=== PATIENT | male | born 1975 | race Caucasian/White ===

== ENCOUNTER 2020-01-21 20:23 | Inpatient (IN) | payer OTHER, SELFPAY ==
[2020-01-21] MEDS ORDERED: Morphine 4 MG/ML VIAL ONE (20:30)
[2020-01-21] MEDS ORDERED: Adacel (T-DAP) 0.5 ML SYRINGE ONE (20:33)
[2020-01-21] MEDS ORDERED: Fentanyl 100 MCG/2 ML VIAL ONE ×4 (20:36→23:43)
--- NOTE | 2020-01-21 20:59 | RAD ---
TWO VIEWS LEFT TIBIA/FIBULA: Date: 01-21-2020 Comparison: None History: Fall, trauma, pain. FINDINGS: Markedly comminuted and markedly displaced distal left tibial and fibular fractures are noted. Distal fracture fragments are displaced laterally by at least 1.4 cm. Multiple displaced fracture fragments are noted. Soft tissue irregularity suggests that this is an open fracture. The calcaneus is not wel l assessed secondary to overlying artifact. IMPRESSION: Findings suggesting an open comminuted displaced and angulated fracture of the distal left tibia and fibula. The fracture probably involves the articular surface of the distal left tibia. POS: [facility]
[2020-01-21 21:07] LABS: #Basophils 0.1 thou/uL (0.0-0.2); #Eosinphils 0.3 thou/uL (0.0-0.7); #Lymphocytes 3.6 thou/uL (1.20-3.40); #Neutrophils 8.9 thou/uL (1.40-6.50); %Basophils 0.6 % (0.0-1.0); %Eosinophils 1.9 % (0.0-10.0); %Lymphocytes 25.7 % (21.0-51.0); %Monocytes 7.4 % (0.0-10.0); %Neutrophils 64.4 % (42.0-75.0); Hemoglobin 13.5 g/dL (14.0-18.0); Mean Corpuscular HGB CONC 34.5 g/dL (32.0-36.0); Mean Corpuscular Hemoglobin 30.9 pg (27.0-31.0); Mean Corpuscular Volume 89.5 fL (78.0-98.0); Mean Platelet Volume 8.6 fL (7.4-10.4); Platelet Count 213 thou/uL (130-400); RBC Distribution Width 11.6 % (11.5-14.5); Red Blood Cell (RBC) Count 4.37 mill/uL (4.70-6.10); White Blood Cell (WBC) Count 13.9 thou/uL (4.8-10.8)
[2020-01-21 21:13] LABS: INR-International Normal Ratio 1.1; Prothrombin Time 13.7 sec (12.0-14.7)
[2020-01-21] MEDS ORDERED: Ondansetron PF 4 MG/2 ML Vial IVP PRN (21:20)
[2020-01-21] MEDS ORDERED: hydrALAZINE 20 MG/ML VIAL SLOW IVP PRN (21:20)
[2020-01-21] MEDS ORDERED: Morphine 4 MG/ML VIAL SLOW IVP PRN (21:20)
[2020-01-21] MEDS ORDERED: Dextrose 5% in Water 1,000 ML IV PRN (21:20)
[2020-01-21] MEDS ORDERED: Dextrose 50% Abboject 50 ML SYRINGE SLOW IVP PRN (21:20)
[2020-01-21] MEDS ORDERED: Neomycin-Polymyxin 1 ML AMP ONE (21:22)
[2020-01-21] MEDS ORDERED: traMADol HCl 50 MG TAB PO PRN ×2 (21:24)
[2020-01-21] MEDS ORDERED: Cyclobenzaprine 10 MG TAB PO PRN (21:24)
[2020-01-21 21:26] LABS: ALT (SGPT) 25 U/L (8-55); AST (SGOT) 18 U/L (5-34); Albumin 4.2 g/dL (3.5-5.0); Alkaline Phosphatase 63 U/L (40-110); Anion Gap 15 mmol/L (10-20); BUN (Urea Nitrogen) 24 mg/dL (8.9-20.6); Bilirubin, Total 0.2 mg/dL (0.2-1.2); Calc. Creatinine Clearance 0 mL/min (70-130); Calcium 9.2 mg/dL (7.8-10.44); Carbon Dioxide 22 mmol/L (22-29); Chloride 110 mmol/L (98-107); Estimated GFR-MDRD 76; Globulin 2.8 g/dL (2.4-3.5); Glucose 96 mg/dL (70-105); Magnesium 2.1 mg/dL (1.6-2.6); Phosphorus 2.7 mg/dL (2.3-4.7); Potassium 3.8 mmol/L (3.5-5.1); Sodium 143 mmol/L (136-145)
[2020-01-21] MEDS ORDERED: Acetaminophen 500 MG TAB PO SCH (21:30)
[2020-01-21] MEDS ORDERED: Sodium Chloride 0.9% 1,000 ML IV SCH (21:30)
[2020-01-21 21:49] LABS: Lactic Acid 1.7 mmol/L (0.5-2.2)
[2020-01-21] MEDS ORDERED: Ibuprofen 600 MG TAB PO SCH (22:00)
[2020-01-21] MEDS ORDERED: Succinylcholine Chloride 20 MG/ML 10 ml SYRINGE FS ONE (22:07)
[2020-01-21] MEDS ORDERED: PROPOFOL 200 MG/20 ML VIAL ONE (22:07)
[2020-01-21] MEDS ORDERED: Ondansetron PF 4 MG/2 ML Vial ONE (22:07)
[2020-01-21] MEDS ORDERED: Glycopyrrolate 0.2 MG/ML 5 ML SYRINGE ONE (22:07)
[2020-01-21] MEDS ORDERED: Dexamethasone 20 MG/5 ML VIAL ONE (22:07)
[2020-01-21] MEDS ORDERED: Rocuronium Bromide 10 MG/ML (10ML VIAL) ONE (22:07)
[2020-01-21] MEDS ORDERED: Lidocaine 1% PF 5 ML VIAL ONE (22:07)
[2020-01-21] MEDS ORDERED: Potassium Phosphate 15 MMOL in Sodium Chloride 0.9% 250 ML 250 ML IVPB SCH (22:30)
[2020-01-21] MEDS ORDERED: cefTRIAXone\\ROCEPHIN 1 GM VIAL ONE (22:44)
[2020-01-21] MEDS ORDERED: Ketorolac Tromethamine 30 MG/ML VIAL ONE (23:34)
[2020-01-21] MEDS ORDERED: Ondansetron HCl/PF 4 MG/2 ML Vial IVP PRN (23:38)
[2020-01-21] MEDS ORDERED: HYDROmorphone 2 MG/ML VIAL SLOW IVP PRN (23:38)
[2020-01-21] MEDS ORDERED: Promethazine HCl 25 MG/ML VIAL SLOW IVP PRN (23:38)
[2020-01-21] MEDS ORDERED: Promethazine HCl 25 MG/ML VIAL IM PRN (23:38)
--- NOTE | 2020-01-21 23:44 | HP ---
TRAUMA SURGEON: Riki Christiansen MD CONSULTING PHYSICIAN: Migel Neff MD HISTORY OF PRESENT ILLNESS: The patient is a 44-year-old male presented to the Emergency Department via EMS after a fall from about 6 feet up while he was on a ladder. The patient reported he was cutting branches with 1 of the branches that he was holding onto came loose, subsequently he fell. He states he initially landed on his feet and sat down on his buttocks and then laid down. He denies hitting his head or loss of consciousness. Denies anticoagulation use. Denies numbness and tingling in his bilateral upper and lower extremities. He has been hemodynamically stable and his left lower extremity was splinted by the emergency room physician before my arrival. REVIEW OF SYSTEMS: All additional 10-point review of systems negative except as indicated above. PAST MEDICAL HISTORY: None. PAST SURGICAL HISTORY: He has had an inguinal hernia repair on the right. SOCIAL HISTORY: The patient denies tobacco, drug, and alcohol use. He lives at home with his and has five kids. He works at a restaurant. He is primarily Turkish-speaking, but understands most Nigerien. MEDICATIONS: None. ALLERGIES: NO KNOWN DRUG ALLERGIES. PHYSICAL EXAMINATION: VITAL SIGNS: Temperature 98.5, pulse 82, respirations 16, oxygen saturation 100% on room air, and blood pressure 142/89. PRIMARY SURVEY: Airway intact. Adequate breath sounds bilaterally. 2+ pulses in the bilateral radials, femorals, and DPs. GCS 15. Gross motor and sensation are intact. The patient has an open fracture to his left distal tib-fib that has been splinted and dressed. There is no signs of active bleeding or oozing at this time. SECONDARY SURVEY: HEAD: Normocephalic and atraumatic. No gross palpable skull deformities. EYES: Pupils 3-2; equal, round, and reactive to light bilaterally. ENT: No signs of trauma. C-SPINE: No step-offs, deformities, or tenderness to palpation. C-collar in place. CHEST: Nontender. No crepitus. No abrasions or ecchymosis. Equal chest movement. ABDOMEN: Soft, nontender, and nondistended. PELVIS: Stable to palpation. Nontender. No abrasions or ecchymosis. RECTAL: Deferred. GENITOURINARY: Deferred. EXTREMITIES: The patient has a splint to his left distal tib-fib that is clean, dry, and intact. There appears to be no signs of active bleeding. 2+ pulses in the bilateral radials, femorals, and DPs. BACK/SPINE: No step-offs or deformities to the thoracic or lumbar spine. He does have some tenderness over the mid upper T-spine with no signs of trauma. NEUROLOGIC: 5/5 strength in bilateral sales agent protective service, plantar flexion, and dorsiflexion. Gross normal sensation x4 extremities. LABORATORY FINDINGS: White count 13.9, hemoglobin 13.5, hematocrit 39.2, and platelets 213. INR 1.1. Sodium 143, potassium 3.8, chloride 110, bicarb 22, BUN 24, creatinine 1.06, glucose 96, lactic acid 1.7, magnesium 2.1, and phosphorus 2.7. DIAGNOSTIC FINDINGS: X-ray of the left tib-fib demonstrates findings suggestive of open comminuted displaced and angulated fracture of the distal left tibia and fibula. The fracture probably involves the articular surface of the distal left tibia. Chest x-ray and pelvic x-ray have been completed. Final reads are pending at this time. There does not seem to be anything obvious noted upon my evaluation. ASSESSMENT: 1. Status post mechanical fall from a ladder up, about 6 feet. 2. Left open distal tib-fib fracture. 3. T-spine tenderness. PLAN: The patient will be admitted to the Trauma Service. Dr. Neff is to take the patient to the OR this evening for fixation of the left open distal tib-fib fracture. We will complete CT scans of the T and L-spine as the patient reported spinal tenderness and with the mechanism of him falling and sitting down, we will want to further evaluate the spine. He is to remain in T and L-spine precautions until this is completed. He will receive scheduled and p.r.n. pain medications. We will follow up on reads of the chest x-ray in the pelvis. The patient will likely be able to go home. Pending CT scan results and working with Physical and Occupational Therapy. This patient will be discussed with Dr. Christiansen after this dictation. Job ID: [id number]
[2020-01-22 01:40] VITALS: BMI 25.7
[2020-01-22] MEDS ORDERED: Potassium Phosphate 15 MMOL in Sodium Chloride 0.9% 250 ML 250 ML IVPB SCH (01:45)
--- NOTE | 2020-01-22 01:50 | OP ---
DATE OF PROCEDURE: 01/21/2020 PREOPERATIVE DIAGNOSIS: Grade 3 open left distal tib-fib fracture, intra-articular. POSTOPERATIVE DIAGNOSIS: Grade 3 open left distal tib-fib fracture, intra-articular. PROCEDURES PERFORMED: 1. Application of delta frame external fixator, left ankle. 2. Irrigation and debridement of left ankle. ANESTHESIA: General. SOLAR INSTALLATION CREW SUPERVISOR: None. TOURNIQUET TIME: Zero. ESTIMATED BLOOD LOSS: 100 mL. IMPLANTS: Synthes large external fixator. COMPLICATIONS: None. DRAINS: None. SPECIMEN: None. OUTCOME: Satisfactory. INDICATIONS FOR PROCEDURE: The patient is a 44-year-old gentleman, status post fall from a height of approximately 6 feet, sustaining an open left distal tibia fracture. Prior to surgery, risks and benefits of the proposed procedure were explained to patient. I believe all questions were answered. The patient does have evidence for a grade 3 open left distal tibia fracture with an anteromedial transverse laceration. There was found to be dirt of the overlying skin, but no gross dirt on initial inspection of the open wound. The patient now taken to the operating room. DESCRIPTION OF PROCEDURE: The patient was brought to the operating room and a time-out performed followed by induction of general anesthesia. The patient was positioned supine on the OR table and a sterile prep and drape was performed of this left lower extremity. The traumatic anteromedial wound was then inspected. There was found to be some necrotic skin edge that was sharply debrided with a scalpel and some fascia that did not appear viable. This too was sharply debrided. There was found to be some small bits of bone that were not attached to any soft tissue and these were also debrided from the wound. After the sharp debridement of the skin and subcutaneous tissue, the wound was further inspected. No obvious dirt or foreign material was found within the wound. The wound was then irrigated with 5 L of normal saline. It should be noted that this distal medial tibia was severely comminuted, but all the remaining bony fragments that were encountered still had soft tissue attachment and as such, they were left in place. Following the irrigation of this traumatic wound, a delta frame external fixator was applied. First, a through and through calcaneal pin was placed, followed by two half pins in the proximal tibial diaphysis. The delta frame was then constructed and under C-arm guidance was adjusted to get reasonable alignment. At the completion of this, all the attachments were firmly secured and then the traumatic wound was loosely closed with #2 nylon just to keep some tension on the skin edge so as not to have any exposed bone visible. At the completion of this, a Xeroform gauze and a bulky short-leg splint was applied to the leg. The patient was then transferred to recovery room in stable condition. There were no complications. He tolerated the procedure well. Job ID: [id number]
[2020-01-22] MEDS: Ibuprofen 600 MG TAB PO SCH ×3 (02:11→18:05)
[2020-01-22] MEDS: Acetaminophen 500 MG TAB PO SCH ×4 (02:11→20:05)
[2020-01-22] MEDS ORDERED: Sodium Chloride 0.9% 1,000 ML IV SCH (02:15)
[2020-01-22] MEDS ORDERED: cefTRIAXone\\ROCEPHIN 2 GM in Sodium Chloride 0.9% 100 ML IVPB SCH ×3 (03:00→23:30)
[2020-01-22 05:15] LABS: #Monocytes 0.7 thou/uL (0.11-0.59); #Neutrophils 12.4 thou/uL (1.40-6.50); %Eosinophils 0.1 % (0.0-10.0); %Monocytes 4.6 % (0.0-10.0); %Neutrophils 88.3 % (42.0-75.0); Hemoglobin 11.6 g/dL (14.0-18.0); Mean Corpuscular HGB CONC 34.7 g/dL (32.0-36.0); Mean Corpuscular Volume 89.3 fL (78.0-98.0); Mean Platelet Volume 8.1 fL (7.4-10.4); Platelet Count 195 thou/uL (130-400); RBC Distribution Width 11.6 % (11.5-14.5); Red Blood Cell (RBC) Count 3.74 mill/uL (4.70-6.10); White Blood Cell (WBC) Count 14.1 thou/uL (4.8-10.8)
[2020-01-22 05:52] LABS: Anion Gap 11 mmol/L (10-20); BUN (Urea Nitrogen) 20 mg/dL (8.9-20.6); Calc. Creatinine Clearance 132 mL/min (70-130); Calcium 8.2 mg/dL (7.8-10.44); Carbon Dioxide 23 mmol/L (22-29); Chloride 108 mmol/L (98-107); Estimated GFR-MDRD Greater than 90; Glucose 137 mg/dL (70-105); Phosphorus 3.7 mg/dL (2.3-4.7); Potassium 4.3 mmol/L (3.5-5.1); Sodium 138 mmol/L (136-145)
--- NOTE | 2020-01-22 08:14 | RAD ---
FRONTAL RADIOGRAPH CHEST: DATE: 01/21/2020. COMPARISON: None. HISTORY: Trauma, pain. FINDINGS: Lungs are clear. Heart and mediastinal contours appear grossly unremarkable. IMPRESSION: No acute findings. POS: [facility]
--- NOTE | 2020-01-22 08:14 | RAD ---
FRONTAL RADIOGRAPH PELVIS: DAET: 01/21/2020. COMPARISON: None. HISTORY: Fall. FINDINGS: There is no widening of the pubic symphysis or sacroiliac joints. No displaced fracture is seen. IMPRESSION: No acute findings. POS: [facility]
--- NOTE | 2020-01-22 09:21 | RAD ---
INTRAOPERATIVE IMAGING LEFT TIBIA FIBULA: DATE: 01/21/2020. COMPARISON: None. HISTORY: Trauma, pain. FINDINGS: There is a markedly comminuted distal left tibial and fibular fracture again noted. There is hardwar e overlying the ankle/hindfoot and the tibial shaft proximal to the fracture consistent with an exter nal fixator placement. IMPRESSION: Placement of a left-sided external fixator. POS: [facility]
[2020-01-22] MEDS: Polyethylene Glycol 3350 17 GM Packet PO SCH (09:38)
[2020-01-22] MEDS: Famotidine/PF 20 mg/2ml Vial SLOW IVP SCH ×2 (09:39→20:06)
[2020-01-22] MEDS: Gabapentin 300 MG CAP PO SCH ×3 (09:39→20:06)
[2020-01-22] MEDS: traMADol HCl 50 MG TAB PO SCH ×3 (09:39→22:53)
[2020-01-22] MEDS: Enoxaparin Sodium 40 MG/0.4 ML SYRINGE SC SCH (09:39)
[2020-01-22] MEDS: Senokot S 8.6-50 MG TAB PO SCH ×2 (09:39→20:06)
--- NOTE | 2020-01-22 10:34 | CT ---
PRELIMINARY REPORT/[facility]/EMERGENCY AFTER HOURS PROCEDURE Exam: Unenhanced CT thoracic and lumbar spine. History: Fall from ladder. Comparison: None provided. Findings: There is mild dependent atelectasis. Paraspinous soft tissues are within normal limits. T here is anatomic alignment. Vertebral body heights are preserved. There is no acute osseous abnorma lity. Impression: Negative CT thoracic and lumbar spine. ELECTRONICALLY SIGNED BY: Loida Rain MD Jan 22, 2020 2:52:48 AM CDT FINAL REPORT CT OF THORACIC SPINE PERFORMED WITHOUT CONTRAST ENHANCEMENT: HISTORY: Fell from a ladder with back pain. FINDINGS: The vertebral bodies maintain normal height. Disk spaces are well preserved and facets are all in no rmal alignment. There are no signs of canal or foraminal stenosis. There is no CT evidence for a fr acture. Bibasilar atelectatic lung changes are seen. IMPRESSION: 1. No evidence of acute injury of the thoracic spine. 2. This report is in agreement with the temporary report issued by [facility]. POS: [facility]
--- NOTE | 2020-01-22 10:44 | CT ---
PRELIMINARY REPORT/[facility]/EMERGENCY AFTER HOURS PROCEDURE: Exam: Unenhanced CT thoracic and lumbar spine. History: Fall from ladder. Comparison: None provided. Findings: There is mild dependent atelectasis. Paraspinous soft tissues are within normal limits. T here is anatomic alignment. Vertebral body heights are preserved. There is no acute osseous abnorma lity. Impression: Negative CT thoracic and lumbar spine. ELECTRONICALLY SIGNED BY: Loida Rain MD Jan 22, 2020 2:52:48 AM CDT FINAL REPORT EMERGENT AFTER HOURS CT OF THE LUMBAR SPINE PERFORMED WITHOUT CONTRAST ENHANCEMENT: HISTORY: Fell from a ladder with back pain. FINDINGS: The vertebral bodies maintain normal height and disk spaces are well preserved. The facets are in no rmal alignment. There is no evidence of canal or foraminal stenosis. There is no CT evidence for a fracture. SI joints are symmetric. There is a punctate nonobstructing left renal calculus incidenta lly noted. IMPRESSION: 1. No CT evidence of fracture of the lumbar spine. 2. Punctate nonobstructing left renal calculus. 3. This report is in agreement with the temporary report issued by [facility].
--- NOTE | 2020-01-22 10:54 | CT ---
PRELIMINARY REPORT/[facility]/EMERGENCY AFTER HOURS PROCEDURE Exam: Left tib-fib CT History: POST-OP, FALL FROM LADDER OPEN TIB FIB FX Comparison: None provided. Findings: Images were obtained from level of distal femur distally through to level of calcaneus. Ally ge quality is degraded due to metallic artifact from external fixator at junction of proximal and mid third tibial diaphysis. There is present within soft tissues. There is no focal hematoma. Edema o f soft tissues about ankle is present. There is butterfly fracture fragments. Distal fibula intra-a rticular fracture is present. Comminuted fracture distal tibial diaphysis extending into the articul ar surface is present. Punctate fracture fragments is present along the posterior lateral tibiotalar joint space. Alignment is grossly maintained. Not entirely included on the exam is calcaneal fract ure. Impression: Fracture distal tibia and fibula. No ankle dislocation. Calcaneal fracture. ELECTRONICALLY SIGNED BY: Loida Rain MD Jan 22, 2020 2:49:09 AM CDT FINAL REPORT CT LEFT LOWER EXTREMITY WITHOUT IV CONTRAST: EMERGENCY AFTER HOURS EXAM TIME: 1:38 AM. DATE: 01/22/2020. CT examination of the left tibia and fibula extending from the knee joint down to the ankle joint. C omminuted displaced distal tibial fracture with butterfly-type fragments and up to 1 cm of displaceme nt. Comminuted fracture of the distal fibular diaphysis with some malalignment. Chip-type fracture involving the posterior medial aspect of the distal fibula which extends intraarticularly. Displaced fracture of the lateral calcaneus. No jessie dislocation. This report is in agreement with the preliminary report. POS: [facility]
--- NOTE | 2020-01-22 13:09 | PRG ---
DATE OF SERVICE: 01/22/2020 SUBJECTIVE: This is a 44-year-old gentleman, who fell approximately 6 feet from a ladder causing a left open distal tib-fib fracture. The patient is postop #1 after washout and external fixator device placement. The patient had no overnight events. The patient's pain is moderate at this time. The patient is tolerating a regular diet. The patient has not worked with Physical Therapy yet. OBJECTIVE: VITAL SIGNS: Blood pressure 113/68, temperature 98.3, pulse 80, respirations 14, SpO2 of 98% on room air. GENERAL: Well-appearing, middle-aged male, awake, alert, in no distress. RESPIRATORY: Equal chest rise and fall, bilateral breath sounds clear, no distress. ABDOMEN: Soft, nontender, nondistended. EXTREMITIES: Neurovascularly intact x4. The patient has a bandage that is clean, dry, and intact to his left lower extremity and external fixator device in place. NEUROLOGIC: No focal deficits. LABORATORY DATA: WBC 14.1, RBC 3.71, hemoglobin 11.6, and hematocrit 33.4. Sodium 138, potassium 4.3, chloride 108, BUN 20, creatinine 0.85, estimated GFR greater than 90, glucose 137, calcium 8.2, phosphorus 3.7, and magnesium 2.0. DIAGNOSTIC STUDIES: Official read on thoracic spine CT and lumbar spine CT, no evidence for acute injury of the thoracic spine. No evidence for fracture of the lumbar spine. Punctate nonobstructing left renal calculus. ASSESSMENT: 1. Status post mechanical fall from a ladder approximately 6 feet. 2. Left open distal tib-fib fracture, postop day #1, washout and external fixator device. 3. Acute traumatic pain secondary to above injury. PLAN: Continue supportive care and increased pain regimen. We will schedule the patient tramadol. We will start Lovenox this morning for VTE prophylaxis. PT and OT to evaluate and treat. The patient will be n.p.o. after midnight as Orthopedic Surgery plans to take him back to the OR for final fixation of his injury. The patient was examined by Dr. Paez during morning rounds. Job ID: [id number]
--- NOTE | 2020-01-22 22:50 | PRG ---
DATE OF SERVICE: 01/22/2020 SUBJECTIVE: The patient was seen this evening during rounds. He was sitting up in bed with no signs of acute distress. He reported no acute events. He is planning to go to the OR tomorrow with Dr. Neff again for a washout of his wound. Ex-fix is in place. OBJECTIVE: VITAL SIGNS: Temperature 97.8, pulse 78, respirations 18, oxygen saturation 97% on room air, and blood pressure 117/71. GENERAL: Well-appearing middle-aged male, sitting up in bed with no signs of acute distress. PULMONARY: Equal chest rise and fall. No signs of acute respiratory distress. ASSESSMENT: 1. Status post fall from ladder about 6 feet. 2. Left open distal tib-fib fracture, status post ex-fix. PLAN: Continue current diet and pain regimen. N.p.o. at midnight for OR tomorrow with Dr. Neff for repeat washout of the left lower extremity. At midnight, he will receive normal saline at 100 an hour for a total of 1 L. Job ID: [id number]
[2020-01-23] MEDS ORDERED: Sodium Chloride 0.9% 1,000 ML IV SCH (00:01)
[2020-01-23] MEDS: Ibuprofen 600 MG TAB PO SCH ×3 (02:53→18:31)
[2020-01-23] MEDS: Acetaminophen 500 MG TAB PO SCH ×4 (02:54→20:24)
[2020-01-23] MEDS: traMADol HCl 50 MG TAB PO SCH ×4 (02:54→22:53)
[2020-01-23 06:07] LABS: #Basophils 0.1 thou/uL (0.0-0.2); #Eosinphils 0.2 thou/uL (0.0-0.7); #Lymphocytes 3.7 thou/uL (1.20-3.40); #Monocytes 1.4 thou/uL (0.11-0.59); #Neutrophils 6.5 thou/uL (1.40-6.50); %Basophils 0.6 % (0.0-1.0); %Eosinophils 1.4 % (0.0-10.0); %Lymphocytes 31.3 % (21.0-51.0); %Monocytes 11.7 % (0.0-10.0); %Neutrophils 54.9 % (42.0-75.0); Hemoglobin 10.2 g/dL (14.0-18.0); Mean Corpuscular HGB CONC 31.9 g/dL (32.0-36.0); Mean Corpuscular Hemoglobin 28.8 pg (27.0-31.0); Mean Corpuscular Volume 90.6 fL (78.0-98.0); Mean Platelet Volume 8.4 fL (7.4-10.4); Platelet Count 198 thou/uL (130-400); RBC Distribution Width 11.7 % (11.5-14.5); Red Blood Cell (RBC) Count 3.55 mill/uL (4.70-6.10); White Blood Cell (WBC) Count 11.8 thou/uL (4.8-10.8)
[2020-01-23 06:23] LABS: Anion Gap 10 mmol/L (10-20); BUN (Urea Nitrogen) 16 mg/dL (8.9-20.6); Calc. Creatinine Clearance 127 mL/min (70-130); Calcium 7.9 mg/dL (7.8-10.44); Carbon Dioxide 25 mmol/L (22-29); Chloride 108 mmol/L (98-107); Estimated GFR-MDRD Greater than 90; Glucose 92 mg/dL (70-105); Magnesium 2.5 mg/dL (1.6-2.6); Phosphorus 2.8 mg/dL (2.3-4.7); Potassium 4.1 mmol/L (3.5-5.1); Sodium 139 mmol/L (136-145)
[2020-01-23] MEDS ORDERED: PROPOFOL 200 MG/20 ML VIAL ONE (09:13)
[2020-01-23] MEDS ORDERED: Lidocaine 1% PF 5 ML VIAL ONE (09:13)
[2020-01-23] MEDS: Senokot S 8.6-50 MG TAB PO SCH ×2 (09:17→20:23)
[2020-01-23] MEDS: Polyethylene Glycol 3350 17 GM Packet PO SCH (09:17)
[2020-01-23] MEDS: Gabapentin 300 MG CAP PO SCH ×3 (09:17→20:25)
[2020-01-23] MEDS: Famotidine/PF 20 mg/2ml Vial SLOW IVP SCH (11:34)
[2020-01-23] MEDS ORDERED: Midazolam HCl 2 mg/2 ml Vial ONE (13:23)
[2020-01-23] MEDS ORDERED: Fentanyl 100 MCG/2 ML VIAL ONE ×3 (13:24→15:11)
[2020-01-23] MEDS ORDERED: Promethazine HCl 25 MG/ML VIAL SLOW IVP PRN (14:16)
[2020-01-23] MEDS ORDERED: Promethazine HCl 25 MG/ML VIAL IM PRN (14:16)
[2020-01-23] MEDS ORDERED: Ondansetron HCl/PF 4 MG/2 ML Vial IVP PRN (14:16)
--- NOTE | 2020-01-23 15:45 | OP ---
DATE OF PROCEDURE: 01/23/2020 OPERATION PERFORMED: Irrigation and debridement of left open tibia fracture. PREOPERATIVE DIAGNOSIS: Displaced left open tibia and fibular fracture status post external fixation. POSTOPERATIVE DIAGNOSIS: Displaced left open tibia and fibular fracture status post external fixation. COMPLICATIONS: None. ESTIMATED BLOOD LOSS: Minimal. ANESTHESIA: General. INDICATIONS: Mr. Huynh is a 44-year-old male who has fallen from a ladder and fractured his left tibia. He has sustained an open tibia and fibular fracture. He has been indicated now for irrigation and debridement of the wound to ensure that he has no infection. We are trying to get him ready for open reduction and internal fixation next week. DESCRIPTION OF PROCEDURE: Mr. Huynh was identified in the preoperative holding area. His correct extremity was marked. He was carried to the operating room. He was positioned supine. General anesthesia was induced. A multidisciplinary time-out was performed. The left lower extremity was prepped and draped in a sterile fashion. We began the procedure by opening the patient's traumatic anterior medial wound. We dissected down through the subcutaneous tissues to the bony level. There was some subcutaneous tissue as well as fascia, which appeared to be injured. This was excisionally debrided. There was no gross purulence or gross infection. There was no gross contamination. We debrided the skin edges as well as the underlying tissue sharply with a knife as well as a curette. We then thoroughly irrigated with copious lavage. At this point, after obtaining hemostasis, we closed the wound with a 3- 0 nylon suture in interrupted fashion. A sterile dressing was applied. The patient was taken to the recovery room in good condition without complication. Job ID: [id number]
--- NOTE | 2020-01-23 18:00 | PRG ---
DATE OF SERVICE: 01/23/2020 SUBJECTIVE: The patient remains on the surgical floor, awake, alert, no distress, currently ambulating on crutches with physical therapy. The patient is postop day #2 status post washout and external fixator device placement. The patient's pain has been well controlled and had no overnight events. The patient has been n.p.o. over midnight as he is going back to the OR for a second washout by Dr. Strong. OBJECTIVE: VITAL SIGNS: Temperature 97.6, pulse 65, respirations 16, SpO2 of 97% on room air, blood pressure 113/72. GENERAL: Well-appearing middle-aged male, awake, alert, no distress. RESPIRATORY: Respirations are even and nonlabored. EXTREMITIES: Neurovascularly intact x4, external fixator in place to left lower extremity. NEUROLOGIC: No focal deficits. LABORATORY DATA: WBC 11.8, RBC 3.55, hemoglobin 10.2, hematocrit 32.1, platelets 198. Sodium 139, potassium 4.1, chloride 108, BUN 16, creatinine 0.88, estimated GFR 90, glucose 92, calcium 7.9, phosphorus 2.8, magnesium 2.5. ASSESSMENT: 1. Status post mechanical fall from ladder approximately 6 feet. 2. Left open distal tib-fib fracture, postop day #1 washout and external fixator device. 3. Acute traumatic pain, improving. PLAN: Continue supportive care and pain regimen. Continue physical and occupational therapy. Lovenox for VTE prophylaxis. The patient will be going to the OR for a second washout today. The patient will continue IV antibiotics per Orthopedic Surgery. The patient will most likely be discharged home tomorrow if his pain is controlled. The patient was examined by Dr. Paez during morning rounds. Job ID: [id number]
[2020-01-23] MEDS: CEFAZOLIN 2 GM in Premix Bag 1 BAG IVPB SCH (20:23)
[2020-01-23] MEDS: Famotidine 20 MG TAB PO SCH (20:23)
[2020-01-24] MEDS: Acetaminophen 500 MG TAB PO SCH ×3 (03:26→14:30)
[2020-01-24] MEDS: Ibuprofen 600 MG TAB PO SCH ×2 (03:27→09:59)
[2020-01-24] MEDS: CEFAZOLIN 2 GM in Premix Bag 1 BAG IVPB SCH (03:27)
[2020-01-24] MEDS ORDERED: CEFAZOLIN 2 GM in Premix Bag 1 BAG IVPB SCH (04:00)
[2020-01-24 04:24] VITALS: TEMP 98.7
[2020-01-24] MEDS: traMADol HCl 50 MG TAB PO SCH ×2 (04:25→10:00)
[2020-01-24 05:14] LABS: Band 3 % (5-11); Eosinophils 2 % (0-10); Hemoglobin 10.1 g/dL (14.0-18.0); Lymphocytes 31 % (21-51); MDiff Complete? YES; Mean Corpuscular Hemoglobin 30.6 pg (27.0-31.0); Mean Platelet Volume 8.2 fL (7.4-10.4); Monocytes 14 % (0-10); Neutrophil 50 % (42-75); Platelet Count 172 thou/uL (130-400); RBC Distribution Width 11.5 % (11.5-14.5); Red Blood Cell (RBC) Count 3.29 mill/uL (4.70-6.10); White Blood Cell (WBC) Count 9.9 thou/uL (4.8-10.8)
--- NOTE | 2020-01-24 06:30 | PDOC.BPN ---
- Brief Progress Note Date of Service: 01/24/2020 SUBJECTIVE: Patient remain in surgical floor. Patient was seen on round last evening Patient report pain is control. He tolerate with his diet. Denied nausea or vomiting Patient worked with PT/OT PHYSICAL EXAMINATION: GENERAL: Currently, the patient is lying down in bed comfortable with no acute respiratory distress, generalized. The patient is alert and awake. GCS 15. VITAL sign stable CHEST: Atraumatic. No tender to palpation. No crepitus. LUNGS: Clear bilaterally. HEART: Regular rate and rhythm. ABDOMEN: Atraumatic. No bruising. No tender to palpation. Nondistended. Bowel sounds active. PELVIS: Stable. EXTREMITIES: Neurovascularly intact x4. Edema of LLE NEUROLOGIC: No focal neurology deficits. ASSESSMENT: 1. Status post fall from the ladder 2. Open L tib/fib fracture- status post ex fixed PLAN: continue pain control. Continue PT/ OT . Elevate LLE . Anticipate discharge home today. Will be readmitted next week for final repaired per Orthopaedic P
[2020-01-24 08:16] VITALS: BP 121/76
[2020-01-24] MEDS: Famotidine 20 MG TAB PO SCH (08:49)
[2020-01-24] MEDS: Enoxaparin Sodium 40 MG/0.4 ML SYRINGE SC SCH (08:49)
[2020-01-24] MEDS: Gabapentin 300 MG CAP PO SCH (08:50)
[2020-01-24] MEDS: Senokot S 8.6-50 MG TAB PO SCH (09:58)
[2020-01-24] MEDS: Polyethylene Glycol 3350 17 GM Packet PO SCH (09:58)
--- NOTE | 2020-01-24 17:03 | DIS ---
DATE OF ADMISSION: 01/22/2020 DATE OF DISCHARGE: 01/24/2020 This is Judith Linton NP dictating a report for Sandro Paez DO. DISCHARGE ATTENDING: Dr. Paez. CONSULTS: Orthopedic Surgery, Dr. Neff. PROCEDURES: 1. On 01/21/2020, Dr. Neff did an irrigation and debridement of his left grade 3 open distal tib-fib fracture. Application of a Delta frame external fixator was placed. 2. On 01/23/2020, Dr. Strong did an irrigation and debridement of his left open tibia-fibula fracture. PRIMARY DIAGNOSES: 1. Status post mechanical fall from ladder approximately 6 feet. 2. Left grade 3 distal tibia-fibula fracture, T-spine tenderness, no fractures. DISCHARGE MEDICATIONS: 1. Lovenox 40 mg subcu q.a.m. for 14 days. 2. Gabapentin 300 mg p.o. 3 times a day, #60, no refills. 3. Tramadol 50 mg p.o. 1 to 2 tabs q.6 hours p.r.n. pain, #60, no refills. 4. Tylenol 1 g p.o. q.6 hours. 5. Ibuprofen 600 mg p.o. q.8 hours p.r.n. pain. 6. MiraLAX as needed for constipation. No discontinued medications. HISTORY OF PRESENT ILLNESS AND HOSPITAL COURSE: This is a 44-year-old gentleman, who was up in a ladder trimming trees, when one of the branches he was holding on to became loose, causing him to fall. The patient initially landed on his feet and sat down onto his buttocks. He denies hitting his head or losing consciousness. The patient denied being on any anticoagulation use. The patient denied any numbness or tingling. The patient also had some T-spine tenderness, in which his x-rays were normal. The patient was hemodynamically stable in the emergency room and throughout his hospital stay. The patient was splinted in the emergency room and taken to the OR for irrigation and debridement and placement of an external fixator. The patient was on IV antibiotics during his hospital stay. The patient's pain was well controlled during his hospital stay. The patient was able to ambulate using crutches with physical therapy without any difficulties. On the day of discharge, the patient was examined by Dr. Paez. The patient's vital signs were stable and his exam was unremarkable including cardiopulmonary and GI exam. The patient was deemed stable for discharge home with his external fixator device in place. DISPOSITION: Stable. DISCHARGE INSTRUCTIONS: 1. Location: Home. 2. Diet: Regular diet as tolerated. 3. Activity: Nonweightbearing left lower extremity, Lovenox for 2 weeks for VTE prophylaxis. Wound care to the left lower extremity. No followup needed with Trauma Services. The patient is scheduled for next Wednesday, January 30 for final repair of his left lower extremity fracture. A COVID prescreen has been ordered. The patient is to follow up with Orthopedic Services as directed. Dressing changes every 2 days or sooner if soiled. The patient has also been instructed to keep the left leg elevated and float the heel. Job ID: [id number]
[2020-01-24] MEDS ORDERED: cefTRIAXone\\ROCEPHIN 2 GM in Sodium Chloride 0.9% 100 ML IVPB SCH (23:00)
== END 2020-01-24 14:30 | disposition home or self-care (01) | DRG 464 ==
LOC: ERS 20:23 → SDC/OP 22:09 → SURG B 01-22 01:02
PROVIDERS: ADMIT Orthopaedic Surgery; ATTEND Orthopaedic Surgery
PROC: 0QSH05Z Reposition Left Tibia with External Fixation Device, Open Approach (ICD-10-PCS; 2020-01-22)
PROC: 0JBR0ZZ Excision of Left Foot Subcutaneous Tissue and Fascia, Open Approach (ICD-10-PCS; principal; 2020-01-23)
DX: S82.302A Unspecified fracture of lower end of left tibia, initial encounter for closed fracture (principal); T84.127A Displacement of internal fixation device of bone of left lower leg, initial encounter; W11.XXXA Fall on and from ladder, initial encounter; S82.492A Other fracture of shaft of left fibula, initial encounter for closed fracture; Y83.8 Other surgical procedures as the cause of abnormal reaction of the patient, or of later complication, without mention of misadventure at the time of the procedure
CPT/HCPCS: 36415; 71045; 72128; 72131; 72170; 76000; 80048; 80053; 83605; 83735; 84100; 85007; 85025; 85027; 85610; 86850; 86900; 86901; 90715; 93005; C1713; G0390; J0690; J0696; J1100; J1650; J1885; J2001; J2250; J2270; J2405; J2704; J3010; J3490; J7050; S0028

== ENCOUNTER 2020-01-29 06:52 | Outpatient (CLI) | payer OTHER, SELFPAY ==
[2020-01-30 13:11] LABS: SARS-CoV-2 MS2 Positive; SARS-CoV-2 N Gene Negative; SARS-CoV-2 S Gene Negative; SARS-CoV-2 orf1ab Negative
== END 2020-01-29 06:53 | disposition home or self-care (01) ==
LOC: LABBT 06:52
PROVIDERS: ATTEND Orthopaedic Surgery
DX: Z01.812 Encounter for preprocedural laboratory examination (principal); Z11.59 Encounter for screening for other viral diseases; S82.202A Unspecified fracture of shaft of left tibia, initial encounter for closed fracture; S82.402A Unspecified fracture of shaft of left fibula, initial encounter for closed fracture
CPT/HCPCS: 87635; U0003

== ENCOUNTER 2020-01-31 09:55 | Inpatient (IN) | payer SELFPAY ==
[2020-01-26 14:43] VITALS: BMI 25.7
[2020-01-31] MEDS ORDERED: Midazolam HCl 2 mg/2 ml Vial ONE (11:07)
[2020-01-31] MEDS ORDERED: Fentanyl 100 MCG/2 ML VIAL ONE ×2 (11:07→12:05)
[2020-01-31] MEDS ORDERED: Lidocaine 1% (PF) 30 ML VIAL ONE (11:21)
[2020-01-31] MEDS ORDERED: Lidocaine 1% PF 5 ML VIAL ONE (11:45)
[2020-01-31] MEDS ORDERED: PROPOFOL 200 MG/20 ML VIAL ONE (11:45)
[2020-01-31] MEDS ORDERED: Ondansetron PF 4 MG/2 ML Vial ONE (11:45)
[2020-01-31] MEDS ORDERED: Ropivacaine 0.5% HCl/PF (150 MG/30 ML VIAL) ONE (11:45)
[2020-01-31] MEDS ORDERED: Dexamethasone 20 MG/5 ML VIAL ONE (11:45)
[2020-01-31 11:52] LABS: Hemoglobin 11.3 g/dL (14.0-18.0); Mean Corpuscular HGB CONC 32.8 g/dL (32.0-36.0); Mean Corpuscular Hemoglobin 29.3 pg (27.0-31.0); Mean Corpuscular Volume 89.4 fL (78.0-98.0); Mean Platelet Volume 6.7 fL (7.4-10.4); Platelet Count 451 thou/uL (130-400); RBC Distribution Width 11.5 % (11.5-14.5); Red Blood Cell (RBC) Count 3.87 mill/uL (4.70-6.10); White Blood Cell (WBC) Count 13.6 thou/uL (4.8-10.8)
[2020-01-31] MEDS ORDERED: Zolpidem Tartrate 5 MG TAB PO PRN (12:03)
[2020-01-31] MEDS ORDERED: Ondansetron PF 4 MG/2 ML Vial IVP PRN (12:03)
[2020-01-31] MEDS ORDERED: Promethazine HCl 25 MG/ML VIAL IM PRN ×2 (12:03→13:44)
[2020-01-31] MEDS ORDERED: Ropivacaine 0.2% 550 ML 550 ML NERVE BLCK SCH (12:03)
[2020-01-31] MEDS ORDERED: Fentanyl 100 MCG/2 ML VIAL IV PRN (12:03)
[2020-01-31] MEDS ORDERED: HYDROcodone/Acetaminophen 10/325 mg Tablet PO PRN (12:03)
[2020-01-31] MEDS ORDERED: traMADol HCl 50 MG TAB PO PRN (12:03)
[2020-01-31] MEDS ORDERED: Neomycin-Polymyxin 1 ML AMP ONE (12:16)
[2020-01-31] MEDS ORDERED: Tobramycin/Dexamethasone Ophth Oint 3.5 GM TUBE ONE (12:16)
[2020-01-31] MEDS ORDERED: Tobramycin Sulfate 1.2 GM VIAL ONE (12:17)
[2020-01-31] MEDS ORDERED: Communication Order-Pharmacy FS SCH (13:30)
[2020-01-31] MEDS ORDERED: TETANUS AND DIPHTHERIA TOX/PF 0.5 ML DISP.SYRIN IM SCH (13:30)
[2020-01-31] MEDS ORDERED: Promethazine HCl 25 MG/ML VIAL SLOW IVP PRN (13:44)
[2020-01-31] MEDS ORDERED: Ondansetron HCl/PF 4 MG/2 ML Vial IVP PRN (13:44)
[2020-01-31] MEDS ORDERED: Meperidine HCl/PF 25 MG/ML VIAL ONE (13:56)
[2020-01-31] MEDS ORDERED: cefTRIAXone\\ROCEPHIN 2 GM in Sodium Chloride 0.9% 100 ML IVPB SCH (15:00)
[2020-01-31] MEDS: cefTRIAXone\\ROCEPHIN 2 GM in Sodium Chloride 0.9% 100 ML IVPB SCH (18:37)
--- NOTE | 2020-01-31 22:07 | OP ---
DATE OF PROCEDURE: 01/31/2020 PREOPERATIVE DIAGNOSIS: Left intra-articular distal tibia fracture with distal fibula fracture, grade 3 open. POSTOPERATIVE DIAGNOSIS: Left intra-articular distal tibia fracture with distal fibula fracture, grade 3 open. PROCEDURES PERFORMED: 1. Irrigation and debridement of left distal tibia. 2. Placement of antibiotic bead pouch. ANESTHESIA: General. MORTAR MAN: Monster Edwards PA-C TOURNIQUET TIME: Zero. COMPLICATIONS: None. DRAINS: None. SPECIMEN: Swab x2 for Gram stain, culture, and sensitivity. IMPLANTS: Vancomycin and tobramycin, antibiotic beads (total of 10 beads on one suture line). INDICATIONS FOR PROCEDURE: The patient is a 44-year-old gentleman, status post grade 3 open left distal tibia and distal fibular shaft fracture. Initially, this wound was found to have some contamination and as such, irrigation and debridement was performed. The patient was placed in a delta frame external fixator. He did return to the operating room 48 hours later for repeat irrigation, was felt to have a clean wound. Due to the swelling and the acute nature of his traumatic wound, he was discharged to home and then brought back today for anticipated open reduction and internal fixation. Preoperatively, however, his white count was found to be 13.7, and he did have some mild drainage from the traumatic wound and as such, I had concerns regarding proceeding with open reduction and internal fixation in the face of this elevated white count. He is now taken back to the operating room for repeat irrigation and debridement as well as placement of antibiotic beads within the wound. DESCRIPTION OF PROCEDURE: The patient was brought to the operating room, and a time-out was performed followed by induction of general anesthesia. Next, a sterile prep and drape was performed of left lower extremity with the external fixator left in place. Next, the sutures from the traumatic anterior medial wound were removed and the wound explored. He was found to have some bloody fluid in the subcutaneous space as well as in the fracture gaps. We did not encounter anything that looked frankly purulent. Cultures were obtained both from the subcutaneous fluid as well as the intramedullary fluid collection. These were sent for Gram stain, culture, and sensitivity. Next, a total of 5 L normal saline with antibiotic irrigant was irrigated through this wound, including the intramedullary canal. There were found to be no fragments of bone, void of soft tissue attachment and as such, none were debrided. At the completion of the irrigation, antibiotic beads composed of vancomycin, tobramycin, and polymethylmethacrylate had been made on the back table. These were then packed in the intramedullary canal through the fracture site. At the completion of this, the skin was reapproximated with #1 nylon and then a Tegaderm dressing applied over this wound to develop a bead pouch. Next, a bulky gauze, Webril, and a posterior fiberglass splint were applied to the leg, and then the patient was transferred to recovery room in stable condition. There were no complications. He tolerated the procedure well. Job ID: [id number]
[2020-02-01 06:11] LABS: #Eosinphils 0.1 thou/uL (0.0-0.7); #Lymphocytes 2.2 thou/uL (1.20-3.40); #Monocytes 1.2 thou/uL (0.11-0.59); %Basophils 0.3 % (0.0-1.0); %Eosinophils 0.4 % (0.0-10.0); %Monocytes 10.6 % (0.0-10.0); %Neutrophils 69.6 % (42.0-75.0); Hemoglobin 9.6 g/dL (14.0-18.0); Mean Corpuscular HGB CONC 33.1 g/dL (32.0-36.0); Mean Corpuscular Hemoglobin 29.4 pg (27.0-31.0); Mean Corpuscular Volume 88.6 fL (78.0-98.0); Mean Platelet Volume 6.7 fL (7.4-10.4); Platelet Count 441 thou/uL (130-400); RBC Distribution Width 11.7 % (11.5-14.5); Red Blood Cell (RBC) Count 3.26 mill/uL (4.70-6.10); White Blood Cell (WBC) Count 11.4 thou/uL (4.8-10.8)
[2020-02-01 08:24] LABS: Anion Gap 12 mmol/L (10-20); BUN (Urea Nitrogen) 18 mg/dL (8.9-20.6); Calc. Creatinine Clearance 140 mL/min (70-130); Calcium 8.9 mg/dL (7.8-10.44); Carbon Dioxide 25 mmol/L (22-29); Chloride 104 mmol/L (98-107); Estimated GFR-MDRD Greater than 90; Glucose 103 mg/dL (70-105); Lactic Acid 0.7 mmol/L (0.5-2.2); Magnesium 2.4 mg/dL (1.6-2.6); Phosphorus 4.1 mg/dL (2.3-4.7); Potassium 4.1 mmol/L (3.5-5.1); Sodium 137 mmol/L (136-145)
[2020-02-01 08:29] LABS: Hemoglobin 9.8 g/dL (14.0-18.0); Mean Corpuscular HGB CONC 32.8 g/dL (32.0-36.0); Mean Corpuscular Hemoglobin 29.3 pg (27.0-31.0); Mean Corpuscular Volume 89.3 fL (78.0-98.0); Mean Platelet Volume 6.6 fL (7.4-10.4); Platelet Count 417 thou/uL (130-400); RBC Distribution Width 11.7 % (11.5-14.5); Red Blood Cell (RBC) Count 3.33 mill/uL (4.70-6.10); White Blood Cell (WBC) Count 12.9 thou/uL (4.8-10.8)
[2020-02-01 08:56] LABS: Band 3 % (5-11); Lymphocytes 24 % (21-51); MDiff Complete? YES; Monocytes 8 % (0-10); Neutrophil 64 % (42-75); Platelet Morphology Comment Appears Increased; Polychromasia SLIGHT = 2-3 cells (100X) (0-2/hpf)
[2020-02-01] MEDS ORDERED: Fentanyl 100 MCG/2 ML VIAL IV PRN (08:57)
[2020-02-01] MEDS: HYDROcodone/Acetaminophen 10/325 mg Tablet PO PRN ×2 (11:32→17:13)
[2020-02-01] MEDS: cefTRIAXone\\ROCEPHIN 2 GM in Sodium Chloride 0.9% 100 ML IVPB SCH (17:14)
[2020-02-01] MEDS: metroNIDAZOLE 500 MG in Premix Bag 1 BAG IVPB SCH (20:14)
[2020-02-01] MEDS: Gabapentin 300 MG CAP PO SCH (20:14)
--- NOTE | 2020-02-01 21:18 | HP ---
REFERRING PHYSICIAN: Migel Neff MD. TRAUMA SURGEON: Sandro Paez DO CONSULTING PHYSICIAN: Migel Neff MD. HISTORY OF PRESENT ILLNESS: The patient is a 44-year-old male, who is known to the Trauma Service. He came to the hospital yesterday to have his ex-fix removed and internal fixation placed by Dr. Neff. He originally sustained a left open tib-fib fracture on January 20 after he fell off a ladder about 6 feet. At that time, Dr. Neff placed an ex-fix and they were scheduled for January 30 to complete the fixation. However, yesterday when he arrived, there was concern for infection of the ex-fix. Subsequently, Dr. Neff completed the I and D of the left distal tib-fib and placed antibiotic beads. The patient was also placed on Rocephin. Dr. Haddad was consulted this morning. Ortho Surgery asked Trauma if we would like the manage the patient's care as he was previously known to us. At the time of my evaluation, the patient had a nerve block to his left lower extremity. He reported his pain was well controlled. Tolerating a diet. Denied fever or chills. Having bowel movements and voiding without issues. He was not tachycardic or febrile. REVIEW OF SYSTEMS: All additional 10-point review of systems negative, except as indicated above. PAST MEDICAL HISTORY: None. PAST SURGICAL HISTORY: Patient went to the OR on January 21, 2020 and had ex-fix placed in his left open tib-fib fracture. SOCIAL HISTORY: The patient works at a [employer] restaurant and lives with the and family at home. He denies tobacco, drug, or alcohol use. MEDICATIONS: The patient home medications include, 1. Tylenol. 2. Lovenox. 3. Gabapentin. 4. Ibuprofen. 5. MiraLAX. 6. Tramadol. ALLERGIES: NO KNOWN DRUG ALLERGIES. PHYSICAL EXAMINATION: VITAL SIGNS: Temperature 98.2, pulse 90, respirations 18, oxygen saturation 99% on room air, blood pressure 127/77. GENERAL: Well-appearing middle-aged male sitting in bed with no signs of acute distress. PULMONARY: Equal chest rise and fall, clear breath sounds bilaterally. No signs of acute respiratory distress. CARDIAC: Regular rate and rhythm. GASTROINTESTINAL: Abdomen is soft, nontender, nondistended. EXTREMITIES: 2+ pulses in all extremities. Gross motor and sensation intact. The patient has a dressing and an ex-fix to his left lower extremity. There is also a nerve block in place that is working appropriately. NEUROLOGIC: GCS is 15. LABORATORY FINDINGS: White count 12.9, hemoglobin 9.8, hematocrit 29.8, platelets 417. Sodium 137, potassium 4.1, chloride 104, bicarb 25, BUN 18, creatinine 0.8, glucose 103. Lactic acid 0.7, phosphorus 4.1, magnesium 2.4. DIAGNOSTIC FINDINGS: There are no new diagnostic findings to report. ASSESSMENT: Left tibial-fibular postoperative infection with ex-fix in place. PLAN: Continue regular diet. Continue pain regimen with scheduled Tylenol and p.r.n. tramadol. Start bowel regimen. Start Lovenox for DVT prophylaxis. Continue nerve block per anesthesia. Continue antibiotics per the recommendations of Dr. Haddad and Dr. Neff. Repeat blood work in the morning. PT, OT to move the patient around. We will touch base with Ortho Surgery to see when they are planning possibly to take him to the OR for either another washout or for internalization of his ex-fix. This patient was discussed with Dr. Paez before this dictation. Job ID: [id number]
[2020-02-01] MEDS: traMADol HCl 50 MG TAB PO PRN (22:01)
[2020-02-01] MEDS: Senokot S 8.6-50 MG TAB PO SCH (22:02)
--- NOTE | 2020-02-01 22:44 | CON ---
DATE OF CONSULTATION: REASON FOR CONSULTATION: Recommendations for antimicrobial prophylaxis for exposed fracture. HISTORY OF PRESENT ILLNESS: A 44-year-old, who has a history of a fall from a step ladder in his house when he was trying to cut a tree branch. After that, he fell on the ground and sustained a type 3A left intra-articular ankle fracture both tibia and fibula, who was brought by EMS to the hospital and he underwent three procedures thus far on 01/20. He had the application of a delta frame external fixator left ankle and irrigation and debridement, but the wound itself was not grossly contaminated and the surgeon was able to close the wound with soft tissue and the second procedure was two days later on January 22 and it consists of irrigation and debridement. In the first procedure, there was noticeable necrotic tissue, which was debrided, some loose bone that was taken out. Most of the remainder of bone was attached to soft tissue though. The second procedure demonstrated no evidence of gross purulence or contamination and again, the skin edges were debrided again. On January 23, the patient was discharged. He was scheduled for the final repair of his left lower extremity and he was readmitted for that and the operative report from yesterday was reviewed and it consisted of irrigation and debridement of left distal tibia and placement of antibiotic bead pouch. The procedure was reviewed as well. The sutures were removed and the wound explored. There was some bloody fluid in the subcutaneous space and fracture gaps, but no purulence. Cultures were taken and antibiotic irrigant was used. No fragments of bone were noted. Antibiotic beads were placed with vancomycin and tobramycin. The intramedullary canal was packed and the skin was reapproximated. The cultures from the site are still pending, the Gram stain with rare growth at the moment. The first admission when the patient had been managed with the first two procedures, cefazolin was given and then Rocephin. Looks like he was not given any other antimicrobial. At this time, he was given one dose of vancomycin perioperatively. Currently, Mr. Huynh is awake. He is very pleasant. Denies any headaches, visual symptoms, sore throat, odynophagia, or dysphagia. No cough or sputum production. No chest pain. No abdominal pain or diarrhea. No genitourinary symptoms. No other joint symptoms. He has mild pain at the site. There is a nerve block placed on the left low lower extremity. PAST MEDICAL HISTORY: Inguinal hernia repair. No other medical problem before this. SOCIAL HISTORY: Never smoker. . Five children. Works at a restaurant. ALLERGIES: NONE. CURRENT MEDICATIONS: 1. Analgesia. 2. He is on ceftriaxone now. PHYSICAL EXAMINATION: VITAL SIGNS: Temperature normal, blood pressure 120/70, pulse 90, respirations 18, and O2 saturation 99. GENERAL: The patient is awake and alert, in no distress. The left lower extremity fracture site is covered with dressing over the external fixator frame. He has a peripheral IV access and is voiding in the urinal. No lymphadenopathy. HEENT: Ocular movements conjugate. Oral cavity normal. NECK: Supple. LUNGS: Symmetric clear breath sounds. HEART: S1 and S2. Regular rate. No S3 or S4. ABDOMEN: Soft, not distended or tender. No ascites. No bladder distention. EXTREMITIES: Pulses are 1+ in dorsalis pedis on the right side. Cap refill is normal in the left toes that are exposed. NEUROLOGIC: His cognitive function is perfectly fine. Normal speech. LABORATORY DATA: White cell count 13.6 and now 12.9, hemoglobin 9.8, and platelets 451. Chemistry was normal. CRP was 5.84. ASSESSMENT: Otherwise healthy middle-aged male, who sustained an exposed fracture, type 3A left ankle intra-articular, which has been managed with external fixation and repeated courses of irrigation and debridement. The patient had Rocephin and cefazolin prophylaxis perioperatively and he is here for the final intervention with planned fixation of the fracture I believe in the next few days, maybe Wednesday or Wednesday next week. DISCUSSION: The management of exposed fracture depends on the degree of exposure and I think he has a grade 3A exposure and the risk of infection is that is obviously higher in those higher grade fractures and when both local and systemic antibiotics are utilized, it seems that the risk of subsequent infection is reduced significantly anywhere from 20% down to around 6%, but those rates are based on retrospective analysis of cases not on prospective randomized trials. Usually it is not recommended to continue prophylaxis beyond a few days after the intervention. Since he has had numerous interventions, then he probably received antimicrobial therapy for about four or five days from 01/20 through 01/23 and now he is coming back for the definitive procedure and cultures are pending. The addition of metronidazole to cover anaerobic agents would be advisable at this moment, but again after the definitive procedure, antimicrobials would not be continued beyond that phase and still, as a mentioned, there is a risk of around 6% of subsequent development of infection, which would require repeat intervention and then protracted antimicrobial therapy. Most cases will do well with this sort of approach. Job ID: [id number] MTDD
[2020-02-02] MEDS: Acetaminophen 500 MG TAB PO SCH ×4 (00:03→18:24)
--- NOTE | 2020-02-02 00:47 | PRG ---
DATE OF SERVICE: 02/01/2020 SUBJECTIVE: The patient was seen during evening rounds, awake, alert, sitting up in bed. The patient reports some occasional burning like pain to his left lower extremity. Otherwise, voices no complaints or concerns. The patient has an external fixator in place to his left lower extremity. Splint and bandage are clean, dry, and intact. OBJECTIVE: VITAL SIGNS: Stable, afebrile. ASSESSMENT: 1. Left tibial-fibular postop infection with external fixator in place. 2. Postoperative day #1, status post irrigation and debridement of left distal tibia-fibula and placement of antibiotic beads. PLAN: Continue regular diet. Continue pain regimen. VTE prophylaxis with Lovenox. Continue nerve block per Anesthesia. Continue antibiotics per Dr. Haddad and Dr. Neff' recommendations. PT and OT to evaluate and treat. Job ID: [id number]
[2020-02-02] MEDS: metroNIDAZOLE 500 MG in Premix Bag 1 BAG IVPB SCH ×3 (04:30→20:08)
[2020-02-02] MEDS: traMADol HCl 50 MG TAB PO PRN ×3 (04:30→18:25)
[2020-02-02 05:44] LABS: Hemoglobin 9.2 g/dL (14.0-18.0); Mean Corpuscular HGB CONC 33.2 g/dL (32.0-36.0); Mean Corpuscular Hemoglobin 29.6 pg (27.0-31.0); Mean Corpuscular Volume 89.1 fL (78.0-98.0); Mean Platelet Volume 6.5 fL (7.4-10.4); Platelet Count 405 thou/uL (130-400); RBC Distribution Width 11.8 % (11.5-14.5); Red Blood Cell (RBC) Count 3.11 mill/uL (4.70-6.10); White Blood Cell (WBC) Count 10.6 thou/uL (4.8-10.8)
[2020-02-02 05:45] LABS: Band 10 % (5-11); Eosinophils 1 % (0-10); Lymphocytes 31 % (21-51); MDiff Complete? YES; Monocytes 11 % (0-10); Neutrophil 47 % (42-75); Platelet Morphology Comment Appears Increased
[2020-02-02 05:51] LABS: Anion Gap 8 mmol/L (10-20); BUN (Urea Nitrogen) 19 mg/dL (8.9-20.6); Calc. Creatinine Clearance 120 mL/min (70-130); Calcium 8.8 mg/dL (7.8-10.44); Carbon Dioxide 29 mmol/L (22-29); Chloride 103 mmol/L (98-107); Estimated GFR-MDRD 88; Glucose 104 mg/dL (70-105); Magnesium 2.2 mg/dL (1.6-2.6); Phosphorus 4.5 mg/dL (2.3-4.7); Potassium 4.4 mmol/L (3.5-5.1); Sodium 136 mmol/L (136-145)
[2020-02-02] MEDS: Senokot S 8.6-50 MG TAB PO SCH (09:49)
[2020-02-02] MEDS: Enoxaparin Sodium 40 MG/0.4 ML SYRINGE SC SCH (09:49)
[2020-02-02] MEDS: Gabapentin 300 MG CAP PO SCH ×3 (09:49→20:08)
[2020-02-02] MEDS: Polyethylene Glycol 3350 17 GM Packet PO SCH (09:50)
[2020-02-02] MEDS: cefTRIAXone\\ROCEPHIN 2 GM in Sodium Chloride 0.9% 100 ML IVPB SCH (18:24)
--- NOTE | 2020-02-02 18:55 | PRG ---
DATE OF SERVICE: 02/02/2020 SUBJECTIVE: The patient was seen this morning during rounds. He was sitting up in bed with no signs of acute distress. Reported pain is well controlled. Tolerating a diet. OBJECTIVE: VITAL SIGNS: Temperature 97.9, pulse 70, respirations 12, oxygen saturation 97% on room air, blood pressure 120/75. GENERAL: Well-appearing, middle-aged male, sitting up in bed with no signs of acute distress. PULMONARY: Equal chest rise and fall. Clear breath sounds bilaterally. No signs of acute respiratory distress. CARDIAC: Regular rate and rhythm. GI: Abdomen is soft, nontender, nondistended. EXTREMITIES: 2+ pulses in all extremities. Gross motor and sensation are intact. Left lower extremity with dressing that is clean, dry, and intact. Ex-fix is in place. Nerve block is also in place on the left lateral leg. LABORATORY FINDINGS: White count 10.6, hemoglobin 9.2, hematocrit 27.7, platelets 405. Sodium 136, potassium 4.4, chloride 105, bicarb 29, BUN 19, creatinine 0.93, glucose 104, phos 4.5, magnesium 2.2. ASSESSMENT: Status post ex-fix wound infection to the left lower extremity. PLAN: Continue current diet and pain regimen. Continue physical and occupational therapy. Continue Lovenox for DVT prophylaxis. Dr. Haddad has added Flagyl to the patient's regimen. We will continue Rocephin as well. Repeat CBC with diff in the morning. This patient was seen and evaluated by Dr. Paez and myself this morning during rounds. Job ID: [id number]
[2020-02-03] MEDS: Acetaminophen 500 MG TAB PO SCH ×5 (00:40→23:14)
[2020-02-03] MEDS: traMADol HCl 50 MG TAB PO PRN ×4 (00:40→23:15)
[2020-02-03] MEDS: Cyclobenzaprine 10 MG TAB PO PRN (02:44)
[2020-02-03] MEDS: metroNIDAZOLE 500 MG in Premix Bag 1 BAG IVPB SCH ×3 (05:01→19:44)
[2020-02-03] MEDS: Enoxaparin Sodium 40 MG/0.4 ML SYRINGE SC SCH (08:09)
[2020-02-03] MEDS: Senokot S 8.6-50 MG TAB PO SCH ×3 (08:09→23:22)
[2020-02-03] MEDS: Polyethylene Glycol 3350 17 GM Packet PO SCH (08:09)
[2020-02-03] MEDS: Gabapentin 300 MG CAP PO SCH ×3 (08:09→19:44)
[2020-02-03] MEDS ORDERED: HYDROcodone/Acetaminophen 10/325 mg Tablet PO PRN (08:17)
[2020-02-03] MEDS: HYDROcodone/Acetaminophen 10/325 mg Tablet PO PRN ×4 (08:47→21:17)
[2020-02-03 09:16] LABS: Band 6 % (5-11); Eosinophils 4 % (0-10); Hemoglobin 9.5 g/dL (14.0-18.0); Lymphocytes 25 % (21-51); MDiff Complete? YES; Mean Corpuscular Volume 88.2 fL (78.0-98.0); Mean Platelet Volume 6.5 fL (7.4-10.4); Monocytes 8 % (0-10); Neutrophil 57 % (42-75); Platelet Count 433 thou/uL (130-400); Platelet Morphology Comment Appears Increased; RBC Distribution Width 11.7 % (11.5-14.5); Red Blood Cell (RBC) Count 3.16 mill/uL (4.70-6.10); White Blood Cell (WBC) Count 9.5 thou/uL (4.8-10.8)
--- NOTE | 2020-02-03 16:38 | PRG ---
DATE OF SERVICE: 02/03/2020 SUBJECTIVE: The patient was seen this morning during rounds. He was sitting up in bed with no signs of acute distress, who reported his pain is well controlled. His left lower extremity nerve block has been removed. Tolerating a diet. Working with physical exam, ambulating in hallway with PT. OBJECTIVE: VITAL SIGNS: Temperature 98.7, pulse 80, respirations 14, oxygen saturation 96% on room air, blood pressure 113/60. GENERAL: Well-appearing, middle-aged male, sitting up in bed with no signs of acute distress. PULMONARY: Equal chest rise and fall. Clear breath sounds bilaterally. No signs of acute respiratory distress. CARDIAC: Regular rate and rhythm. GI: Abdomen is soft, nontender, nondistended. EXTREMITIES: 2+ pulses in all extremities. Gross motor and sensations intact. No significant swelling noted. Ex fix to left lower extremity is clean, dry, and in place. NEURO: GCS is 15. LABORATORY FINDINGS: White count 9.5, hemoglobin 9.5, hematocrit 27.9, platelets 433. Sodium 136, potassium 4.4, chloride 103, bicarb 29, BUN 9, creatinine 0.93, glucose 104, phosphorus 4.5, magnesium 2.2. DIAGNOSTIC FINDINGS: There are no new diagnostic findings to report. ASSESSMENT: Status post left lower extremity wound, postop wound infection. PLAN: Continue current diet and pain regimen. Continue physical and occupational therapy. Continue antibiotics as previously ordered. The patient is still pending definite fixation likely will be on Wednesday with Dr. Neff. Repeat blood work in the morning. Job ID: [id number]
[2020-02-03] MEDS: cefTRIAXone\\ROCEPHIN 2 GM in Sodium Chloride 0.9% 100 ML IVPB SCH (17:06)
[2020-02-04] MEDS: HYDROcodone/Acetaminophen 10/325 mg Tablet PO PRN ×2 (04:00→14:16)
[2020-02-04] MEDS: metroNIDAZOLE 500 MG in Premix Bag 1 BAG IVPB SCH ×3 (04:00→20:19)
[2020-02-04] MEDS: traMADol HCl 50 MG TAB PO PRN ×2 (05:39→20:24)
[2020-02-04] MEDS: Acetaminophen 500 MG TAB PO SCH ×4 (05:39→23:58)
[2020-02-04 06:32] LABS: Hemoglobin 9.5 g/dL (14.0-18.0); Hypochromia SLIGHT = 6-15 cells (100X) (0-5/hpf); Lymphocytes 34 % (21-51); MDiff Complete? YES; Mean Corpuscular Hemoglobin 28.7 pg (27.0-31.0); Mean Corpuscular Volume 89.6 fL (78.0-98.0); Mean Platelet Volume 6.5 fL (7.4-10.4); Monocytes 3 % (0-10); Neutrophil 63 % (42-75); Platelet Count 464 thou/uL (130-400); Platelet Morphology Comment Appears Adequate; RBC Distribution Width 11.9 % (11.5-14.5); Red Blood Cell (RBC) Count 3.32 mill/uL (4.70-6.10); White Blood Cell (WBC) Count 9.2 thou/uL (4.8-10.8)
[2020-02-04] MEDS: Enoxaparin Sodium 40 MG/0.4 ML SYRINGE SC SCH (08:54)
[2020-02-04] MEDS: Gabapentin 300 MG CAP PO SCH ×3 (08:54→20:20)
[2020-02-04] MEDS: Polyethylene Glycol 3350 17 GM Packet PO SCH (08:54)
[2020-02-04] MEDS: Senokot S 8.6-50 MG TAB PO SCH ×2 (08:54→20:20)
--- NOTE | 2020-02-04 17:08 | PRG ---
DATE OF SERVICE: 02/04/2020 SUBJECTIVE: The patient remains on the surgical floor. He is status post postop wound infection of his left lower extremity. The patient currently is planned for surgery tomorrow, though there was one report that it could be Wednesday. The patient has been afebrile. His pain is controlled. He is tolerating a diet. The patient has also continued to work with Physical Therapy. OBJECTIVE: VITAL SIGNS: Temperature 97.8, heart rate 74, blood pressure 108/66, respirations 12, and oxygen saturation 96% on room air. GENERAL: The patient is resting comfortably in bed. Georgian is his primary language, but he was able to communicate well for my exam. RESPIRATORY: His respirations were nonlabored. His breath sounds were clear bilaterally. HEART: Regular rate and rhythm. ABDOMEN: Soft, flat, and nontender with active bowel sounds. EXTREMITIES: Neurovascularly intact x4. Left lower extremity has external fixator in place with a clean, dry and intact dressing. LABORATORY DATA: White blood cell count 9.2, hemoglobin 9.5, hematocrit 29.8, and platelets 464. RADIOGRAPHIC DATA: There are no radiographic exams. ASSESSMENT: Status post left lower extremity wound, postop infection. PLAN: Plan will be to continue supportive care and IV antibiotics. The patient has been made n.p.o. after midnight for plans to go to the operating room tomorrow, but we will verify that this is the current plan by Orthopedics. Job ID: [id number]
[2020-02-04] MEDS: cefTRIAXone\\ROCEPHIN 2 GM in Sodium Chloride 0.9% 100 ML IVPB SCH (17:29)
[2020-02-05] MEDS: metroNIDAZOLE 500 MG in Premix Bag 1 BAG IVPB SCH ×3 (04:18→20:21)
[2020-02-05] MEDS: Acetaminophen 500 MG TAB PO SCH (05:07)
[2020-02-05 05:16] LABS: Mean Corpuscular HGB CONC 32.9 g/dL (32.0-36.0); Mean Corpuscular Hemoglobin 29.5 pg (27.0-31.0); Mean Corpuscular Volume 89.6 fL (78.0-98.0); Mean Platelet Volume 6.4 fL (7.4-10.4); Platelet Count 483 thou/uL (130-400); White Blood Cell (WBC) Count 8.9 thou/uL (4.8-10.8)
[2020-02-05] MEDS: HYDROcodone/Acetaminophen 10/325 mg Tablet PO PRN ×2 (06:38)
[2020-02-05] MEDS: Polyethylene Glycol 3350 17 GM Packet PO SCH (08:18)
[2020-02-05] MEDS: Senokot S 8.6-50 MG TAB PO SCH ×2 (08:18→20:22)
[2020-02-05] MEDS: Enoxaparin Sodium 40 MG/0.4 ML SYRINGE SC SCH (08:18)
[2020-02-05] MEDS: Gabapentin 300 MG CAP PO SCH ×3 (08:18→20:21)
[2020-02-05] MEDS: Acetaminophen 325 MG TAB PO SCH ×3 (12:49→23:24)
[2020-02-05] MEDS: traMADol HCl 50 MG TAB PO PRN ×2 (15:33→21:34)
--- NOTE | 2020-02-05 17:08 | PRG ---
DATE OF SERVICE: 02/05/2020 SUBJECTIVE: The patient is scheduled for surgical intervention I believe tomorrow. He does not have pain, no shortness of breath, or no diarrhea. OBJECTIVE: VITAL SIGNS: Temperature max 99.6, blood pressure 120/57, pulse 84. HEENT: The patient has normal ocular movements. Oral cavity normal. LUNGS: Symmetric with clear breath sounds. HEART: S1 and S2 without murmurs. ABDOMEN: Soft. Not distended. EXTREMITIES: Left lower extremity with external fixator in place. LABORATORY DATA: Microbiology with bacillus from the tibia from 01/30. ASSESSMENT AND DISCUSSION: Healthy middle-aged male with exposed fracture following fall type 3A left ankle intra-articular, external fixation and repeated course of irrigation and debridement. Rocephin and cefazolin prophylaxis. Here for the final intervention with planned internal fixation of the fracture. The intent is to look after the final procedure to withhold antimicrobial therapy unless the deep cultures yield some positive results. Job ID: [id number]
[2020-02-05] MEDS: cefTRIAXone\\ROCEPHIN 2 GM in Sodium Chloride 0.9% 100 ML IVPB SCH (17:37)
[2020-02-05] MEDS: Cyclobenzaprine 10 MG TAB PO PRN (20:20)
[2020-02-06] MEDS: metroNIDAZOLE 500 MG in Premix Bag 1 BAG IVPB SCH ×3 (04:26→20:26)
[2020-02-06] MEDS: Acetaminophen 325 MG TAB PO SCH ×4 (05:44→23:35)
[2020-02-06] MEDS: traMADol HCl 50 MG TAB PO PRN (05:44)
[2020-02-06] MEDS: Enoxaparin Sodium 40 MG/0.4 ML SYRINGE SC SCH (10:08)
[2020-02-06] MEDS: Gabapentin 300 MG CAP PO SCH ×3 (10:08→20:27)
[2020-02-06] MEDS: Polyethylene Glycol 3350 17 GM Packet PO SCH (10:08)
[2020-02-06] MEDS: Senokot S 8.6-50 MG TAB PO SCH ×2 (10:09→20:27)
[2020-02-06] MEDS ORDERED: Ondansetron PF 4 MG/2 ML Vial ONE ×2 (10:28→15:52)
[2020-02-06] MEDS ORDERED: PROPOFOL 200 MG/20 ML VIAL ONE (10:28)
[2020-02-06] MEDS ORDERED: Ketorolac Tromethamine 30 MG/ML VIAL ONE (10:28)
[2020-02-06] MEDS ORDERED: Bupivacaine HCl 0.5%/Epinephrine 1:200,000/PF 30 ml Vial ONE ×2 (10:28→11:51)
[2020-02-06] MEDS ORDERED: Dexamethasone 20 MG/5 ML VIAL ONE (10:28)
[2020-02-06] MEDS ORDERED: PHENYLEPHRINE-NS 100 MCG/ML 10 ML SYRINGE ONE (10:28)
[2020-02-06] MEDS ORDERED: Bupivacaine PF 0.5% 30 ML VIAL ONE (11:45)
[2020-02-06] MEDS ORDERED: Midazolam HCl 2 mg/2 ml Vial ONE (11:53)
[2020-02-06] MEDS ORDERED: Fentanyl 100 MCG/2 ML VIAL ONE ×3 (11:53→16:18)
[2020-02-06] MEDS ORDERED: Lidocaine 1% (PF) 30 ML VIAL ONE (11:56)
[2020-02-06] MEDS ORDERED: metroNIDAZOLE 500 MG/100 ML BAG ONE (11:57)
[2020-02-06] MEDS ORDERED: CEFAZOLIN 2 GM in Premix Bag 1 BAG IVPB SCH (12:00)
[2020-02-06] MEDS ORDERED: Promethazine HCl 25 MG/ML VIAL IM PRN (15:29)
[2020-02-06] MEDS ORDERED: Ondansetron HCl/PF 4 MG/2 ML Vial IVP PRN (15:29)
[2020-02-06] MEDS ORDERED: Promethazine HCl 25 MG/ML VIAL SLOW IVP PRN (15:29)
--- NOTE | 2020-02-06 15:33 | RAD ---
Exam:Intraoperative fluoroscopy HISTORY: Fracture. ORIF. COMPARISON: 01/22/2020, 01/21/2020 FINDINGS: 4 fluoroscopic views demonstrate placement of internal fixation hardware along the tibia an d fibula. Fracture lucencies are identified. Near anatomic alignment. Exposure: 52.2 seconds. 1.3 mGy. IMPRESSION: Intraoperative fluoroscopy as above.
[2020-02-06] MEDS: CEFAZOLIN 2 GM in Premix Bag 1 BAG IVPB SCH ×2 (16:11→21:52)
--- NOTE | 2020-02-06 16:23 | PRG ---
DATE OF SERVICE: 02/06/2020 SUBJECTIVE: The patient is doing well this morning. I discussed that there are plans for him to go back for surgery today, and the patient is agreeable with plan of care. He has not eaten yet today. He reports that his pain is well controlled at this time. The patient has no complaints. OBJECTIVE: VITAL SIGNS: Temperature 98.1, pulse 85, respiratory rate 16, 99% on room air, blood pressure 120/78. GENERAL: Middle-aged male, lying back in bed, in no acute distress at this time. HEENT: Normocephalic and atraumatic. NECK: Trachea, midline. RESPIRATORY: Equal rise and fall. The patient in no respiratory distress at this time. CARDIAC: Regular rate and rhythm. ABDOMEN: Soft and nontender. Positive bowel sounds. EXTREMITIES: Left lower extremity is neurovascularly intact. There is an external fixator in place that is clean, dry, and intact at this time. LABORATORY DATA: There are no new laboratory data to report. DIAGNOSTIC IMAGING: There is no new diagnostic imaging to report. ASSESSMENT: Status post left lower extremity wound, postoperative infection. PLAN: The patient to go back for surgery again today. We would likely have internal fixation during surgery. Plan is to eventually go home with family support as the patient is uninsured. The patient is having bowel movements and is voiding normally. The patient has not had p.o. this morning as he is n.p.o. before surgery. We will follow up the patient after surgery. The patient was evaluated by and the case was discussed with Dr. Paez during morning rounds and he is agreeable with the plan of care. Job ID: [id number] [facility]
--- NOTE | 2020-02-06 16:34 | PRG ---
DATE OF SERVICE: 02/05/2020 SUBJECTIVE: The patient remains on the surgical floor and was evaluated during the morning rounds today. He was sitting upright in bed, in no acute distress on evaluation. He is postop day 5, status post irrigation and debridement of his left distal tibia and placement of an antibiotic bead pouch. The patient is currently scheduled to have surgery tomorrow. He reports that his pain is well tolerated at this time and he is tolerating somewhat of a diet. He continues to void and stool normally. He also continues to work with Physical Therapy at this time. OBJECTIVE: VITAL SIGNS: Temperature 98.7, pulse 76, respiratory rate 14, 99% on room air, blood pressure 122/79. GENERAL: A middle-age man, sitting upright in bed, in no acute distress at this time. HEENT: Normocephalic, atraumatic. RESPIRATORY: Equal rise and fall, the patient has no respiratory distress. HEART: Regular rate and rhythm. ABDOMEN: Soft, nontender, nondistended, positive bowel sounds. EXTREMITIES: Left lower extremity has external fixator in place which is clean, dry, and intact at this time. He is neurovascularly intact. LABORATORY DATA: White count 8.9, hemoglobin 10.0, hematocrit 30.5, platelets 483. DIAGNOSTIC IMAGING: No new imaging to report. ASSESSMENT: 1. Postoperative day 5, status post irrigation and debridement of left distal tibia and placement of antibiotic bead pouch. 2. External fixator in place. PLAN: We will continue supportive care and IV antibiotics at this time. The patient continuing to have good pain control, tolerating a diet, voiding and stooling normally. Plan for likely surgery tomorrow and we will continue to follow patient before and after surgery at this time The case was discussed with Dr. Paez during morning rounds and he is agreeable with the plan of care. Job ID: [id number] MTDD
[2020-02-06] MEDS: cefTRIAXone\\ROCEPHIN 2 GM in Sodium Chloride 0.9% 100 ML IVPB SCH (17:43)
[2020-02-06] MEDS: Cyclobenzaprine 10 MG TAB PO PRN (20:27)
--- NOTE | 2020-02-06 21:41 | OP ---
DATE OF PROCEDURE: 02/06/2020 PROCEDURES PERFORMED: Open reduction and internal fixation of left distal fibula, and open reduction and internal fixation of left distal tibial plafond fracture, also left ankle external fixator removal. PREOPERATIVE DIAGNOSIS: Comminuted and displaced distal tibia and fibula fracture, status post external fixation. POSTOPERATIVE DIAGNOSIS: Comminuted and displaced distal tibia and fibula fracture, status post external fixation. COMPLICATIONS: None. ESTIMATED BLOOD LOSS: Minimal. RESEARCH PROFESSIONAL: Jolie Childs PA-C IMPLANTS: Synthes 10-hole anterior lateral distal tibial plate as well as a distal fibular 1/3 tubular plate with multiple locking and nonlocking screws. INDICATIONS: Mr. Huynh is a 44-year-old male, who was injured. He had a highly comminuted fracture of the distal tibial plafond and fibula. He has been placed in external fixator. He had an open fracture and has had three irrigation and debridement procedures prior to this surgery. He has had intravenous antibiotics as well. His swelling has diminished and he has been deemed ready for open reduction and internal fixation. Risks have been reviewed in detail. DESCRIPTION OF OPERATION: Mr. Huynh was identified in the preoperative holding area. His correct extremity was marked. He was carried to the operating room. He was positioned supine. General anesthesia was induced. A multidisciplinary time-out was performed. The left lower extremity was prepped and draped in sterile fashion. We began the procedure with removal of the patient's external fixator. The pins were backed out as well as removal of the bars. The external fixator was removed completely. At this point, we made an incision over the lateral ankle extending over the anterior aspect of the foot. We dissected down through the subcutaneous tissues. We identified the superficial peroneal nerve and it was protected. We dissected more deeply down to the fibular level. We exposed the underlying fibula fracture. It was a highly comminuted segmental fracture. There were multiple pieces. We used multiple reduction clamps to hold our fragments back together. We used K-wires as well. We then applied a 12-hole 1/3 tubular plate along the lateral cortex of the fibula. Multiple screws were placed proximally and distally as well as through the interfragmentary pieces. We spanned the entire fracture. We took x-ray images confirming hardware placement. At this point, we dissected more medially toward the tibia. We raised a flap of tissue, which was full-thickness in a subperiosteal fashion. We exposed the highly comminuted distal tibial fracture. At this point, we examined the joint surface itself. There were multiple fragments of cartilage, which were nonviable. These were removed. There were also multiple intra-articular fragments of bone, which were removed. We thoroughly irrigated with lavage of the joint surface. We then pulled traction. We next applied a clamp over our anterior lateral fragment to the posterior malleolar fragment. This restored the congruity of the articular surface. Finally, we placed multiple other clamps and K-wires finishing our reduction. We then placed K-wires and clamps through the medial aspect of the distal tibia. Next, we applied anterolateral plate. Multiple screws were placed proximally and distally holding our reduction. We finished hardware placement through the plate and took x-ray images confirming hardware placement. We then placed two screws from the medial aspect through small poke hole incisions. This allowed secure repair of the medial aspect of the bone. We took final x-ray images in all planes. We thoroughly irrigated again with copious lavage as well as using Betadine lavage. We then closed in layers, protecting the neurovascular structures. We were able to close the skin with nylon suture. A sterile dressing was applied. The patient was taken to the recovery room after a sterile dressing and splint were placed. Job ID: [id number]
[2020-02-07] MEDS: metroNIDAZOLE 500 MG in Premix Bag 1 BAG IVPB SCH ×2 (04:05→12:36)
[2020-02-07] MEDS: traMADol HCl 50 MG TAB PO PRN (04:06)
[2020-02-07] MEDS: Cyclobenzaprine 10 MG TAB PO PRN (04:13)
[2020-02-07] MEDS: Acetaminophen 325 MG TAB PO SCH ×2 (05:32→12:33)
[2020-02-07] MEDS: CEFAZOLIN 2 GM in Premix Bag 1 BAG IVPB SCH (05:33)
[2020-02-07 06:02] LABS: #Eosinphils 0.1 thou/uL (0.0-0.7); #Lymphocytes 2.3 thou/uL (1.20-3.40); #Monocytes 1.3 thou/uL (0.11-0.59); #Neutrophils 9.3 thou/uL (1.40-6.50); %Basophils 0.2 % (0.0-1.0); %Lymphocytes 17.4 % (21.0-51.0); %Monocytes 9.7 % (0.0-10.0); %Neutrophils 71.7 % (42.0-75.0); Hemoglobin 9.2 g/dL (14.0-18.0); Mean Corpuscular Hemoglobin 29.7 pg (27.0-31.0); Mean Corpuscular Volume 89.9 fL (78.0-98.0); Mean Platelet Volume 6.3 fL (7.4-10.4); Platelet Count 445 thou/uL (130-400); RBC Distribution Width 12.1 % (11.5-14.5); Red Blood Cell (RBC) Count 3.08 mill/uL (4.70-6.10)
[2020-02-07] MEDS ORDERED: Ketorolac Tromethamine 30 MG/ML VIAL IVP PRN (06:28)
[2020-02-07] MEDS ORDERED: Morphine 2 MG/ML SYRINGE SLOW IVP PRN (06:29)
[2020-02-07] MEDS ORDERED: HYDROcodone/Acetaminophen 10/325 mg Tablet PO PRN ×2 (06:29)
[2020-02-07] MEDS: Polyethylene Glycol 3350 17 GM Packet PO SCH (09:08)
[2020-02-07] MEDS: Senokot S 8.6-50 MG TAB PO SCH (09:08)
[2020-02-07] MEDS: Enoxaparin Sodium 40 MG/0.4 ML SYRINGE SC SCH (09:08)
[2020-02-07] MEDS: Gabapentin 300 MG CAP PO SCH (09:08)
[2020-02-07 11:50] VITALS: BP 130/73; TEMP 98.4
--- NOTE | 2020-02-07 14:13 | PRG ---
DATE OF SERVICE: 02/07/2020 SUBJECTIVE: The patient continues to do well today. He is postop day 7 from I and D of his distal tibia and postop day 1 status post ORIF of his left distal tibia and fibula. He tolerated the procedure well yesterday, though did have some pain overnight. He continues to tolerate p.o. at this time. He continues to work with Physical and Occupational Therapy. At this time, he continues to remain on Rocephin and metronidazole, and his cefazolin was discontinued. The patient had no concerns or complaints today. OBJECTIVE: VITAL SIGNS: Temperature 97.4 Fahrenheit, pulse 78, respiratory rate 12, O2 saturation 97% on room air, and blood pressure 113/70. HEENT: Normocephalic, atraumatic. Trachea midline. RESPIRATORY: Equal rise and fall, the patient has no respiratory distress. CARDIAC: Regular rate and rhythm. ABDOMEN: Soft, nontender, nondistended. EXTREMITIES: Left lower extremity in brace with Valentino bandaging. Sensation and motor ability intact at this time. NEUROLOGIC: No focal neuro deficits noted. LABORATORY DATA: White count 13.0, hemoglobin 9.2, hematocrit 27.7, and platelets 445. DIAGNOSTIC IMAGING: Tibia-fibula x-ray on 02/06/2020: Placement of internal fixation hardware along the tibia and fibula with near anatomic alignment. ASSESSMENT: 1. Status post left lower extremity wound, postoperative infection. 2. Postoperative day 1 status post open reduction and internal fixation of tibia and fibula. PLAN: The patient continues to do well. We will continue supportive therapy at this time including PT and OT. We will continue normal diet as the patient continues to have bowel movements and is voiding. The patient has had complications of a postoperative infection, and thus we will discuss with Dr. Haddad what medications the patient should be discharged on. According to Orthopedics, the patient could possibly go home today pending recommendations from Dr. Haddad and how the patient does with physical therapy today. The patient is uninsured and will thus have to go home after surgery. We will continue to follow. The patient was evaluated by and the case discussed with Dr. Paez during morning rounds and he is agreeable with the plan of care. Job ID: [id number] MTDD
== END 2020-02-07 15:01 | disposition home or self-care (01) | DRG 492 ==
LOC: SDC 09:55 → SURG B 16:09
PROVIDERS: ADMIT Orthopaedic Surgery; ATTEND Orthopaedic Surgery
PROC: 0Q9H0ZZ Drainage of Left Tibia, Open Approach (ICD-10-PCS; 2020-01-31)
PROC: 0QHH05Z Insertion of External Fixation Device into Left Tibia, Open Approach (ICD-10-PCS; 2020-01-31)
PROC: 3E0V329 Introduction of Other Anti-infective into Bones, Percutaneous Approach (ICD-10-PCS; 2020-01-31)
PROC: 0QSK04Z Reposition Left Fibula with Internal Fixation Device, Open Approach (ICD-10-PCS; principal; 2020-02-06)
PROC: 0QSH04Z Reposition Left Tibia with Internal Fixation Device, Open Approach (ICD-10-PCS; 2020-02-06)
DX: S82.392A Other fracture of lower end of left tibia, initial encounter for closed fracture (principal); S82.832C Other fracture of upper and lower end of left fibula, initial encounter for open fracture type IIIA, IIIB, or IIIC; T81.40XA Infection following a procedure, unspecified, initial encounter; Y83.8 Other surgical procedures as the cause of abnormal reaction of the patient, or of later complication, without mention of misadventure at the time of the procedure
CPT/HCPCS: 36415; 76000; 80048; 83605; 83735; 84100; 85007; 85025; 85027; 85652; 86140; 87070; 87205; A4306; C1713; J0670; J0690; J0696; J1100; J1650; J1885; J2001; J2175; J2250; J2270; J2405; J2704; J2795; J3010; J3260; J3370; J3490; S0020

== ENCOUNTER 2020-09-04 14:00 | Outpatient (CLI) | payer OTHER ==
--- NOTE | 2020-09-04 14:59 | CT ---
CT LOWER EXTREMITY LEFT WITHOUT CONTRAST: DATE: 09/04/2020 2:20 PM. INDICATION: History of left ankle fracture; persistent pain. COMPARISON: Prior CT of the left ankle dated January 22, 2020. FINDING: Since the comparison examination, there has been interval open reduction internal fixation of the com minuted tibial plafond fracture. There is near-anatomic alignment of the bone fragments. There is a residual 6.2 x 7 mm articular surface gap involving the anterior and medial aspect of the tibial plaf ond on image 31 of the coronal series and image 32 of the sagittal series. There is no appreciable healing of the comminuted fracture of the distal tibia. There is some retained suspected cortical bon e in the fracture site of the distal tibial metaphysis, best seen on image 30 of series 6 measuring 1.9 cm and 0.9 cm. There has been interval open reduction internal fixation of the distal fibular sha ft fracture. This is incompletely healed. There is diffuse disuse osteopenia involving the distal tibia. There is incomplete healing of the lateral calcaneal wall fracture. There are external fixator pins at sites in the calcaneus. There is diffuse soft tissue swelling of the lower foreleg and foot. IMPRESSION: 1. Interval open reduction internal fixation of the comminuted tibial plafond fracture without apprec iable interval healing. There is some retained cortical bone within the fracture sites which may reflect necrotic bone fragments. 2. Incompletely healed instrumented fibular shaft fracture. 3. Incompletely healed lateral calcaneal wall fracture. 5. Prominent disuse osteopenia. 6. Prominent subcutaneous edema involving the lower foreleg and ankle. Transcribed Date/Time: 09/04/2020 3:14 PM
== END 2020-09-04 14:01 | disposition home or self-care (01) ==
LOC: BICCT 14:00
PROVIDERS: ATTEND Orthopaedic Surgery
DX: S82.872E Displaced pilon fracture of left tibia, subsequent encounter for open fracture type I or II with routine healing (principal); S82.402P Unspecified fracture of shaft of left fibula, subsequent encounter for closed fracture with malunion; S82.252G Displaced comminuted fracture of shaft of left tibia, subsequent encounter for closed fracture with delayed healing; S92.0 Fracture of calcaneus; R60.0 Localized edema; M85.862 Other specified disorders of bone density and structure, left lower leg

== ENCOUNTER 2020-09-20 07:12 | Inpatient (IN) | payer OTHER ==
[2020-09-18 10:29] VITALS: BMI 25.7
[2020-09-20] MEDS ORDERED: Fentanyl 100 MCG/2 ML VIAL ONE ×3 (09:59→14:40)
[2020-09-20] MEDS ORDERED: PHENYLEPHRINE-NS 100 MCG/ML 10 ML SYRINGE ONE (11:21)
[2020-09-20] MEDS ORDERED: Ondansetron PF 4 MG/2 ML Vial ONE (11:21)
[2020-09-20] MEDS ORDERED: PROPOFOL 200 MG/20 ML VIAL ONE (11:21)
[2020-09-20] MEDS ORDERED: Lidocaine 1% PF 5 ML VIAL ONE (11:21)
[2020-09-20] MEDS ORDERED: Dexamethasone 20 MG/5 ML VIAL ONE (11:21)
[2020-09-20] MEDS ORDERED: Fentanyl 100 MCG/2 ML VIAL SLOW IVP PRN (14:22)
[2020-09-20] MEDS ORDERED: HYDROcodone/Acetaminophen 10/325 mg Tablet PO PRN (14:22)
[2020-09-20] MEDS ORDERED: Communication Order-Pharmacy FS SCH (14:22)
[2020-09-20] MEDS ORDERED: Ondansetron PF 4 MG/2 ML Vial SLOW IVP PRN (14:22)
--- NOTE | 2020-09-20 14:30 | RAD ---
LEFT ANKLE TWO VIEWS: Two fluoroscopic images presented from the OR. Indications: Open reduction internal fixation. FINDINGS: These films demonstrate plate and screws transfixing the distal tibia and fibula. POS: AGW
[2020-09-20] MEDS ORDERED: Pharmacy to Dose ALL ABX IVPB SCH ×2 (17:15→19:15)
[2020-09-20] MEDS ORDERED: Vancomycin HCl 1.25 GM in Sodium Chloride 0.9% 250 ML 300 ML IVPB SCH ×3 (18:00→21:00)
[2020-09-20] MEDS ORDERED: Vancomycin 1.5 GRAM/300 ML BAG 1.5 GM in Premix Bag 1 BAG IVPB SCH (18:00)
--- NOTE | 2020-09-20 18:22 | OP ---
DATE OF PROCEDURE: 09/20/2020 PROCEDURE PERFORMED: Left distal tibial nonunion bone grafting and open reduction and internal fixation. PREOPERATIVE DIAGNOSIS: Left distal tibial fracture nonunion. POSTOPERATIVE DIAGNOSIS: Left distal tibial fracture nonunion. COMPLICATIONS: None. ESTIMATED BLOOD LOSS: 100 mL. COMMUNICATION MANAGER: Monster Edwards PA-C IMPLANTS: Synthes 3.5 mm 6-hole plate was utilized as well as the SANGITA System from [employer]. INDICATIONS: Mr. Lino Viramontes is a 44-year-old male, who sustained a severe injury to his left tibia. He had an open tibial fracture. He was treated with open reduction and internal fixation, but has gone on to nonunion. He has been indicated for bone grafting of the nonunion to hopefully restore strength of the bone and relieve pain. Risks have been reviewed in detail. There is some concern for underlying infection, so it is possible that we would not proceed with bone grafting if that was the case. DESCRIPTION OF PROCEDURE: Mr. Lino Viramontes was identified in the preoperative holding area. His correct extremity was marked. He was carried to the operating room. He was positioned supine. He was given general anesthesia. Intravenous antibiotics were administered. At this point, we began the procedure with a medial approach to the distal tibia. We dissected down through the subcutaneous tissues to the fascia, which was opened. We protected the neurovascular structures. We unroofed up a medial eschar, which had some fluid beneath it. This was cultured and debrided. We re-prepped with Betadine after this as well. Once we exposed the underlying bone, we proceeded to identify the nonunion site. There was palpable motion. We debrided with a curette, rongeur as well as osteotomes. We shingle the edges of the bone and obtained a good bleeding cancellous bone surface. At this point, we moved to the left femur. We made a small incision over the tip of the trochanter. We inserted a guidewire at the tip of the trochanter. We then over-reamed the guidewire. Next, we passed our ball-tipped guidewire from proximal to distal. We then used the SANGITA System with a size 17 reamer head. We passed this down the canal, obtaining an approximately 20 mL of bone graft. We checked this with intraoperative x-ray. We were happy with the position. We then closed the wound on the proximal thigh. At this point, we brought the bone graft down to the distal tibia and packed this along our nonunion site as well as the medial tibial cortex. Finally, we placed a 6-hole metaphyseal 3.5-mm plate. We placed multiple locking and nonlocking screws, rigidly supporting our fracture. We took images confirming hardware placement. There were no complications. We thoroughly irrigated with copious lavage. We then closed the wounds in layers. We applied a sterile dressing and a splint. The patient was taken to the recovery room in good condition. The retail event assistant surgeon was responsible for positioning the patient, preparing the injured extremity, applying the tourniquet, and assisting in preparation for surgery. The retail event assistant was instrumental in reducing the injured limb by applying traction and reduction maneuvers as well as holding retractors and reduction tools. The retail event assistant also was instrumental in assisting in exposure throughout the operation using appropriate retractors. The retail event assistant participated in closure of the operative site as well as dressing application and splint application. Job ID: [id number]
[2020-09-20] MEDS: Ketorolac Tromethamine 30 MG/ML VIAL IVP SCH ×2 (18:35→23:23)
[2020-09-20] MEDS ORDERED: VANCOMYCIN 1.25 GM/250 ML BAG 1.25 GM in Premix Bag 1 BAG IVPB SCH (19:30)
[2020-09-20] MEDS: traMADol HCl 50 MG TAB PO PRN (19:43)
[2020-09-21 04:08] VITALS: TEMP 98
[2020-09-21] MEDS: Ketorolac Tromethamine 30 MG/ML VIAL IVP SCH ×2 (05:12→13:12)
[2020-09-21 05:24] LABS: #Lymphocytes 1.7 thou/uL (1.20-3.40); #Monocytes 1.1 thou/uL (0.11-0.59); #Neutrophils 8.9 thou/uL (1.40-6.50); %Eosinophils 0.1 % (0.0-10.0); %Lymphocytes 14.1 % (21.0-51.0); %Monocytes 9.5 % (0.0-10.0); %Neutrophils 76.2 % (42.0-75.0); Hemoglobin 8.9 g/dL (14.0-18.0); Mean Corpuscular HGB CONC 32.4 g/dL (32.0-36.0); Mean Corpuscular Hemoglobin 27.6 pg (27.0-31.0); Mean Corpuscular Volume 85.2 fL (78.0-98.0); Mean Platelet Volume 7.2 fL (7.4-10.4); Platelet Count 256 thou/uL (130-400); RBC Distribution Width 12.4 % (11.5-14.5); Red Blood Cell (RBC) Count 3.23 mill/uL (4.70-6.10); White Blood Cell (WBC) Count 11.7 thou/uL (4.8-10.8)
[2020-09-21 05:47] LABS: Calc. Creatinine Clearance 149 mL/min (70-130)
[2020-09-21] MEDS ORDERED: VANCOMYCIN 1.25 GM/250 ML BAG 1.25 GM in Premix Bag 1 BAG IVPB SCH ×3 (06:00→14:00)
[2020-09-21] MEDS: traMADol HCl 50 MG TAB PO PRN (06:38)
[2020-09-21] MEDS ORDERED: Enoxaparin Sodium 40 MG/0.4 ML SYRINGE SC SCH (09:00)
[2020-09-21] MEDS ORDERED: FLU VACC QS2020-21(6MOS UP)/PF 60 MCG/0.5 ML SYRINGE IM ONE (09:00)
[2020-09-21 12:07] VITALS: BP 105/68
[2020-09-21] MEDS ORDERED: Aspirin 81 mg Enteric Coated Tablet PO SCH (21:00)
== END 2020-09-21 15:22 | disposition home or self-care (01) | DRG 494 ==
LOC: SDC 07:12 → SURG B 15:21
PROVIDERS: ADMIT Orthopaedic Surgery; ATTEND Orthopaedic Surgery
PROC: 0QSH04Z Reposition Left Tibia with Internal Fixation Device, Open Approach (ICD-10-PCS; principal; 2020-09-20)
PROC: 0QUH0KZ Supplement Left Tibia with Nonautologous Tissue Substitute, Open Approach (ICD-10-PCS; 2020-09-20)
DX: S82.872K Displaced pilon fracture of left tibia, subsequent encounter for closed fracture with nonunion (principal)
CPT/HCPCS: 36415; 76000; 82565; 85025; 87070; 87077; 87186; 87205; C1713; C1776; J0690; J1100; J1650; J1885; J2405; J2704; J3010; J3370

== ENCOUNTER 2025-03-22 15:06 | Outpatient (CLI) | payer OTHER | END 2025-03-22 15:07 | disposition home or self-care (01) | LOC: BICRAD 15:06 | PROVIDERS: ATTEND Nurse Practitioner Family | DX: L03.116 Cellulitis of left lower limb (principal) ==

== ENCOUNTER 2025-04-19 12:00 | Emergency (ER) | payer OTHER ==
[2025-04-19 12:57] LABS: Bacteria/HPF None Seen HPF (None Seen); CAUTI Indications for Culture Pelvic or flank pain; Glucose, Urine (Dipstick) Normal (Negative); Leukocyte Negative Leu/uL (Negative); Protein, Urine (Dipstick) Negative (Neg-Trace); RBC/HPF 0-3 HPF (0-3); Specific Gravity, Urine 1.021 (1.002-1.036); WBC/HPF 0-3 HPF (0-3)
[2025-04-19] MEDS ORDERED: Iopamidol-370 76% 500 ML MDV (1 ML CHARGE) ONE (12:58)
[2025-04-19 12:59] LABS: Urine Culture Reflex No No
[2025-04-19 14:20] LABS: #Basophils 0.04 10x3/uL (0.0-0.2); #Eosinophils 0.09 10x3/uL (0.0-0.7); #Monocytes 0.78 10x3/uL (0.11-0.59); #Neutrophils 6.03 10x3/uL (1.40-6.50); %Basophils 0.5 % (0.0-1.0); %Eosinophils 1.1 % (0.0-10.0); %Lymphocytes 15.7 % (21.0-51.0); %Monocytes 9.4 % (0.0-10.0); %Neutrophils 72.9 % (42.0-75.0); Hematocrit 35.7 % (42.0-52.0); Hemoglobin 11.5 g/dL (14.0-18.0); Mean Corpuscular Hemoglobin 28.1 pg (27.0-31.0); Mean Corpuscular Volume 87.3 fL (78.0-98.0); Platelet Count 213 10x3/uL (130-400); Red Blood Cell (RBC) Count 4.09 mill/uL (4.70-6.10); White Blood Cell (WBC) Count 8.27 10x3/uL (4.8-10.8)
[2025-04-19 14:38] LABS: ALT (SGPT) 35 U/L (Less than 45); AST (SGOT) 26 U/L (11-34); Albumin 3.5 g/dL (3.1-4.5); Alkaline Phosphatase 90 U/L (40-110); Anion Gap 12 mmol/L (10-20); BUN (Urea Nitrogen) 23 mg/dL (8.9-20.6); Bilirubin, Total 0.5 mg/dL (0.3-1.2); Calc. Creatinine Clearance 0 mL/min (70-130); Calcium 9.6 mg/dL (7.8-10.44); Carbon Dioxide 24 mmol/L (22-29); Chloride 108 mmol/L (98-107); Globulin 4.1 g/dL (2.4-3.5); Glucose 94 mg/dL (70-105); Lipase 15 U/L (8-78); Potassium 4.3 mmol/L (3.5-5.1); Sodium 140 mmol/L (136-145)
[2025-04-19] MEDS ORDERED: Ondansetron PF 4 MG/2 ML Vial ONE (15:44)
[2025-04-19 17:41] LABS: INR-International Normal Ratio 1.2; Prothrombin Time 15.1 sec (12.0-14.7)
[2025-04-19 17:42] LABS: PTT 41.5 sec (22.9-36.1)
== END 2025-04-19 18:55 | disposition home or self-care (01) ==
LOC: ERS 12:00
DX: R10.9 Unspecified abdominal pain (principal); Z55.6 Problems related to health literacy
CPT/HCPCS: 74177; 80053; 81001; 83690; 85025; 85610; 85730; 96374; 96375; J2270; J2405; Q9967

== ENCOUNTER 2025-05-08 06:36 | Inpatient (IN) | payer OTHER, SELFPAY ==
[2025-05-08] MEDS ORDERED: Communication Order-Pharmacy FS SCH (18:30)
[2025-05-08] MEDS: TETANUS, DIPHTHERIA TOX,ADULT (TDVAX) 0.5 ML VIAL IM ONE (20:43)
[2025-05-08 22:35] VITALS: BMI 26.5
[2025-05-08] MEDS: Aspirin 81 mg Enteric Coated Tablet PO SCH (22:47)
[2025-05-08] MEDS: HYDROcodone/Acetaminophen 5/325 mg Tablet PO PRN (22:47)
[2025-05-09 05:16] LABS: #Basophils 0.05 10x3/uL (0.0-0.2); #Eosinophils 0.34 10x3/uL (0.0-0.7); #Monocytes 0.59 10x3/uL (0.11-0.59); #Neutrophils 2.78 10x3/uL (1.40-6.50); %Basophils 0.9 % (0.0-1.0); %Eosinophils 6.1 % (0.0-10.0); %Lymphocytes 32.4 % (21.0-51.0); %Monocytes 10.6 % (0.0-10.0); %Neutrophils 49.6 % (42.0-75.0); Hematocrit 32.0 % (42.0-52.0); Hemoglobin 10.0 g/dL (14.0-18.0); Mean Corpuscular Hemoglobin 27.1 pg (27.0-31.0); Mean Corpuscular Volume 86.7 fL (78.0-98.0); Platelet Count 440 10x3/uL (130-400); Red Blood Cell (RBC) Count 3.69 mill/uL (4.70-6.10); White Blood Cell (WBC) Count 5.59 10x3/uL (4.8-10.8)
[2025-05-09 05:33] LABS: ALT (SGPT) 12 U/L (Less than 45); AST (SGOT) 16 U/L (11-34); Albumin 2.8 g/dL (3.1-4.5); Alkaline Phosphatase 70 U/L (40-110); Anion Gap 13 mmol/L (10-20); BUN (Urea Nitrogen) 13 mg/dL (8.9-20.6); Bilirubin, Total 0.2 mg/dL (0.3-1.2); Calc. Creatinine Clearance 134 mL/min (70-130); Calcium 8.8 mg/dL (7.8-10.44); Carbon Dioxide 24 mmol/L (22-29); Chloride 102 mmol/L (98-107); Globulin 4.1 g/dL (2.4-3.5); Glucose 97 mg/dL (70-105); Potassium 3.4 mmol/L (3.5-5.1); Sodium 136 mmol/L (136-145)
[2025-05-09] MEDS: VANCOMYCIN 2 GRAM/400 ML BAG 2 GM in Premix 1 BAG IVPB SCH (15:49)
[2025-05-10] MEDS: Vancomycin 1.5 GM / NS 500ML VIAL-2-BAG IVPB SCH (01:10)
[2025-05-10] MEDS: Acetaminophen 325 MG TAB PO PRN (02:53)
[2025-05-10] MEDS ORDERED: Vancomycin 1.5 GM / NS 500ML VIAL-2-BAG IVPB SCH (03:00)
[2025-05-10 06:10] LABS: #Basophils 0.05 10x3/uL (0.0-0.2); #Eosinophils 0.36 10x3/uL (0.0-0.7); #Monocytes 0.57 10x3/uL (0.11-0.59); #Neutrophils 3.26 10x3/uL (1.40-6.50); %Basophils 0.8 % (0.0-1.0); %Eosinophils 5.8 % (0.0-10.0); %Lymphocytes 31.5 % (21.0-51.0); %Monocytes 9.2 % (0.0-10.0); %Neutrophils 52.5 % (42.0-75.0); Hematocrit 32.0 % (42.0-52.0); Hemoglobin 9.9 g/dL (14.0-18.0); Mean Corpuscular Hemoglobin 26.5 pg (27.0-31.0); Mean Corpuscular Volume 85.8 fL (78.0-98.0); Platelet Count 447 10x3/uL (130-400); Red Blood Cell (RBC) Count 3.73 mill/uL (4.70-6.10); White Blood Cell (WBC) Count 6.20 10x3/uL (4.8-10.8)
[2025-05-10 06:33] LABS: Vancomycin, Random 29.9 ug/mL (See Comment)
[2025-05-10 06:34] LABS: ALT (SGPT) 10 U/L (Less than 45); AST (SGOT) 15 U/L (11-34); Albumin 3.0 g/dL (3.1-4.5); Alkaline Phosphatase 63 U/L (40-110); Anion Gap 11 mmol/L (10-20); BUN (Urea Nitrogen) 17 mg/dL (8.9-20.6); Bilirubin, Total 0.2 mg/dL (0.3-1.2); Calc. Creatinine Clearance 115 mL/min (70-130); Calcium 8.7 mg/dL (7.8-10.44); Carbon Dioxide 24 mmol/L (22-29); Chloride 109 mmol/L (98-107); Globulin 3.9 g/dL (2.4-3.5); Glucose 92 mg/dL (70-105); Potassium 4.0 mmol/L (3.5-5.1); Sodium 140 mmol/L (136-145)
[2025-05-10 09:46] LABS: RBC Count-Automated (BF) Greater than 890000 /cu.mm; WBC/Nucleated-Auto (BF) 4223 /cu.mm
[2025-05-10] MEDS: Vancomycin 1 GM in Premix 1 BAG IVPB SCH (10:37)
[2025-05-10 10:54] LABS: BF Segmented Neutrophils 95 %; Cell Count Non Hematic 1 %
[2025-05-10] MEDS: HYDROcodone/Acetaminophen 5/325 mg Tablet PO PRN (19:47)
[2025-05-11 05:28] LABS: #Basophils 0.08 10x3/uL (0.0-0.2); #Eosinophils 0.35 10x3/uL (0.0-0.7); #Monocytes 0.53 10x3/uL (0.11-0.59); #Neutrophils 3.73 10x3/uL (1.40-6.50); %Basophils 1.1 % (0.0-1.0); %Eosinophils 5.0 % (0.0-10.0); %Lymphocytes 33.4 % (21.0-51.0); %Monocytes 7.5 % (0.0-10.0); %Neutrophils 52.7 % (42.0-75.0); Hematocrit 38.3 % (42.0-52.0); Hemoglobin 11.8 g/dL (14.0-18.0); Mean Corpuscular Hemoglobin 26.9 pg (27.0-31.0); Mean Corpuscular Volume 87.2 fL (78.0-98.0); Platelet Count 522 10x3/uL (130-400); Red Blood Cell (RBC) Count 4.39 mill/uL (4.70-6.10); White Blood Cell (WBC) Count 7.07 10x3/uL (4.8-10.8)
[2025-05-11 05:50] LABS: ALT (SGPT) 15 U/L (Less than 45); AST (SGOT) 25 U/L (11-34); Albumin 3.5 g/dL (3.1-4.5); Alkaline Phosphatase 74 U/L (40-110); Anion Gap 14 mmol/L (10-20); BUN (Urea Nitrogen) 12 mg/dL (8.9-20.6); Bilirubin, Total 0.2 mg/dL (0.3-1.2); Calc. Creatinine Clearance 121 mL/min (70-130); Calcium 9.7 mg/dL (7.8-10.44); Carbon Dioxide 26 mmol/L (22-29); Chloride 105 mmol/L (98-107); Globulin 5.0 g/dL (2.4-3.5); Glucose 91 mg/dL (70-105); Potassium 4.5 mmol/L (3.5-5.1); Sodium 140 mmol/L (136-145)
[2025-05-11] MEDS ORDERED: Lidocaine 1% PF 5 ML VIAL ONE (11:13)
[2025-05-11] MEDS ORDERED: PROPOFOL 20 ML ONE (11:13)
[2025-05-11] MEDS ORDERED: fentaNYL PF 100 MCG/2 ML SYRINGE ONE (11:13)
[2025-05-11] MEDS ORDERED: Bupivacaine 0.25% HCL 30 ML VIAL ONE (11:22)
[2025-05-11] MEDS ORDERED: Ondansetron PF 4 MG/2 ML Vial ONE (11:56)
[2025-05-11] MEDS ORDERED: Ketorolac Tromethamine 30 MG (1 mL) VIAL ONE (11:56)
[2025-05-11] MEDS: Senokot S 8.6-50 MG TAB PO SCH (19:52)
[2025-05-12 06:08] LABS: Vancomycin, Random 18.1 ug/mL (See Comment)
[2025-05-12 09:00] VITALS: BP 130/71; TEMP 98.2
== END 2025-05-12 11:15 | disposition home or self-care (01) | DRG 581 ==
LOC: SURG B 17:37 → OBSVTOIN 17:37
PROVIDERS: ADMIT Orthopaedic Surgery; ATTEND Orthopaedic Surgery
PROC: 3E0234Z Introduction of Serum, Toxoid and Vaccine into Muscle, Percutaneous Approach (ICD-10-PCS; 2025-05-08)
PROC: 3E03329 Introduction of Other Anti-infective into Peripheral Vein, Percutaneous Approach (ICD-10-PCS; 2025-05-09)
PROC: 0S9G3ZZ Drainage of Left Ankle Joint, Percutaneous Approach (ICD-10-PCS; 2025-05-10)
PROC: 07BJ0ZX Excision of Left Inguinal Lymphatic, Open Approach, Diagnostic (ICD-10-PCS; principal; 2025-05-11)
DX: L03.116 Cellulitis of left lower limb (principal); K40.90 Unilateral inguinal hernia, without obstruction or gangrene, not specified as recurrent; R59.0 Localized enlarged lymph nodes; K41.90 Unilateral femoral hernia, without obstruction or gangrene, not specified as recurrent; K43.2 Incisional hernia without obstruction or gangrene; Z98.890 Other specified postprocedural states; Z23 Encounter for immunization
CPT/HCPCS: 36415; 80053; 80202; 85025; 85060; 87070; 87077; 87186; 87205; 88184; 89051; J0169; J0665; J1100; J1885; J2543; J2704; J3373; J3375; J7030